=== PATIENT | female | born 1975 | race Caucasian/White ===

== ENCOUNTER 2021-03-16 11:15 | Inpatient (IN) | payer BC, SELFPAY ==
[~2021-03-16] VITALS: Ht 157.5 cm; Wt 58.1 kg
[2021-03-16 11:15] VITALS: BP_SYST 136
--- NOTE | 2021-03-16 11:49 | NUR ---
Pt coming from c/o excessive vaginal bleeding since Saturday. Pt states she saturated 20 pads yesterday. [facility] [place] where she was given a blood transfusion. Pt states she started her menstraul period on march 07 and it never stopped. Allergic to sulfa medications. Hx of breast cancer. Ambulatory with steady gait. Skin intact. Bed in lowest position and call light within reach. Placed on wire mesh knitter.
--- NOTE | 2021-03-16 12:05 | NUR ---
ER physician Dr. Marrero at bedside.
--- NOTE | 2021-03-16 12:17 | NUR ---
22g IV placed on right AC. Blood drawn and sent to lab. Aseptic technique used. No infiltration noted. Pt has no c/o. VSS.
[2021-03-16 12:55] LABS: CALCIUM 9.1 mg/dL (8.4-11.0); CREATININE 0.91 mg/dL (0.55-1.30); POTASSIUM 3.8 mmol/L (3.5-5.1)
[2021-03-16 13:01] LABS: ALBUMIN 3.1 g/dL (3.4-4.8); TOTAL BILIRUBIN 2.3 mg/dL (0.0-1.0)
[2021-03-16 13:04] LABS: HEMATOCRIT 31.7 % (36-48); HEMOGLOBIN 10.6 g/dL (12.0-16.0); MEAN CORPUSCULAR HEMOGLOBIN 30 pg (27-31); MEAN CORPUSCULAR HGB CONC 33 % (32-36); MEAN CORPUSCULAR VOLUME 90 fL (79.0-98.0); RED BLOOD CELL COUNT(AUTO) 3.54 MIL/uL (4.2-6.2); RED CELL DISTRIBUTION WIDTH 18.3 % (9.0-15.0)
--- NOTE | 2021-03-16 13:36 | NUR ---
Pelvic exam set up at bedside.
--- NOTE | 2021-03-16 13:52 | NUR ---
Pelvix exam completed by Dr. Corley. Covid swab done and sent to lab
[2021-03-16 14:41] LABS: PROTHROMBIN TIME 10.4 SECS (9.5-12.5)
[2021-03-16] MEDS ORDERED: ONDANSETRON HCL 4 MG/2 ML VIAL IVP PRN (15:15)
--- NOTE | 2021-03-16 15:27 | NUR ---
Admit orders have been placed by Dr. Fernandez via telephone. Orders were (Pelvic ultrasound, consult with Dr. Park Hematology, consult with Dr. Ruiz OBASHLY, check H&H every hour, and to be placed in MedSurg due to Thrombocytopenia and Vaginal Bleed).
--- NOTE | 2021-03-16 15:48 | NUR ---
Belonging List done.
[2021-03-16] MEDS ORDERED: DEXAMETHASONE SOD PHOSPHATE 10 MG/ML VIAL IVP SCH (16:00)
[2021-03-16] MEDS ORDERED: FOLIC ACID 1 MG TABLET PO ONE (16:15)
[2021-03-16] MEDS ORDERED: METHYLPREDNISOLONE SOD SUCC 40 MG/ML VIAL IVP ONE (16:15)
[2021-03-16] MEDS ORDERED: TRANEXAMIC ACID 650 MG TABLET PO ONE (16:30)
--- NOTE | 2021-03-16 16:43 | NUR ---
Dr. Park at bedside examining patient
[2021-03-16 17:16] LABS: HEMATOCRIT 31.1 % (36-48); HEMOGLOBIN 10.5 g/dL (12.0-16.0)
[2021-03-16 18:29] LABS: PLATELET COUNT (AUTO) 27 K/uL (130-430)
--- NOTE | 2021-03-16 18:31 | NUR ---
Pt currently eating dinner. Fresh water given. Pt has no c/o. VSS.
[2021-03-16 18:33] LABS: ATYPICAL LYMPHOCYTES % 5 % (0-0); BAND % (MANUAL) 8 % (0-6); BASOPHILS % (MANUAL) 0 % (0-2); EOSINOPHILS % (MANUAL) 2 % (0-7); LYMPHOCYTES % (MANUAL) 30 % (20-46); MONOCYTES % (MANUAL) 11 % (0-11)
[2021-03-16 18:34] LABS: CORRECTED WHITE BLOOD COUNT 9.3 K/uL (4.5-11.0)
--- NOTE | 2021-03-16 19:34 | NUR ---
Accepted care of the patient. Introduced myself and discussed the plan of care. Pt. verbalizes understanding. Vss, no apparent pain or discomfort.
--- NOTE | 2021-03-16 20:11 | NUR ---
Report given for 105 B to ELVIRA Lu.
[2021-03-16 20:28] VITALS: BP_SYST 147
--- NOTE | 2021-03-16 20:48 | NUR ---
CONSULTATION PAGED/CALLED Reason for Consultation: VAGINAL BLEED Person Who was Notified: NOTES IN ER SUMMARY WAS CALLED Consulting Physician: PETRA Water/Wastewater Project Engineer Specialty: Ordering Physician: JOHN
--- NOTE | 2021-03-16 20:50 | NUR ---
CONSULTATION PAGED/CALLED Reason for Consultation: VAGINAL BLEED Person Who was Notified: NOTES IN ER SUMMARY WAS CALLED Consulting Physician: Consultant EVARISTO Specialty: Ordering Physician: JOHN
[2021-03-16] MEDS: TRANEXAMIC ACID 650 MG TABLET PO SCH (21:00)
[2021-03-16] MEDS: METHYLPREDNISOLONE SOD SUCC 40 MG/ML VIAL IVP SCH (22:51)
[2021-03-17] VITALS (7 sets, daily range): BP systolic 130–147
--- NOTE | 2021-03-17 05:15 | NUR ---
CONSULTATION PAGED/CALLED Reason for Consultation: PLASMAPHERESIS Person Who was Notified: ORDER SAYS CONSULT WAS CALLED, DR. MADISON AT BEDSIDE Consulting Physician: GRICELDA Floorwalker Specialty: NEPHRO Ordering Physician: JOHN
[2021-03-17 08:52] LABS: ALBUMIN 2.6 g/dL (3.4-4.8); CALCIUM 8.7 mg/dL (8.4-11.0); CREATININE 0.77 mg/dL (0.55-1.30); POTASSIUM 4.5 mmol/L (3.5-5.1); TOTAL BILIRUBIN 1.7 mg/dL (0.0-1.0)
[2021-03-17 09:15] LABS: HEMATOCRIT 26.1 % (36-48); HEMOGLOBIN 8.6 g/dL (12.0-16.0); MEAN CORPUSCULAR HEMOGLOBIN 30 pg (27-31); MEAN CORPUSCULAR HGB CONC 33 % (32-36); MEAN CORPUSCULAR VOLUME 90 fL (79.0-98.0); RED CELL DISTRIBUTION WIDTH 19.4 % (9.0-15.0); WHITE BLOOD COUNT (AUTO) 18.4 K/uL (4.8-10.8)
[2021-03-17] MEDS: FOLIC ACID 1 MG TABLET PO SCH (09:59)
[2021-03-17] MEDS: METHYLPREDNISOLONE SOD SUCC 40 MG/ML VIAL IVP SCH ×2 (09:59→21:56)
[2021-03-17] MEDS: TRANEXAMIC ACID 650 MG TABLET PO SCH ×3 (09:59→21:56)
[2021-03-17 10:56] LABS: PLATELET COUNT (AUTO) 30 K/uL (130-430)
[2021-03-17 11:22] LABS: RETICULOCYTE COUNT 3.7 % (0.5-1.5)
--- NOTE | 2021-03-17 11:41 | NUR ---
[facility]/HCP CM MS EMRE SOTO WAS CALLED RE: TO ARRANGE TRANSFER TO ANOTHER HOSP FOR EMERGENCY PLASMA PHERESIS. LEFT CM VOICE MESSAGE.
[2021-03-17] MEDS ORDERED: HEPARIN SODIUM,PORCINE 5,000 UNITS/ML VIAL ONE (14:00)
[2021-03-17] MEDS ORDERED: DIPHENHYDRAMINE INJ 50 MG/ML VIAL IVP PRN (14:15)
[2021-03-17] MEDS ORDERED: CALCIUM GLUCONATE 3 GM in NS 100 ML IV PRN (14:15)
[2021-03-17] MEDS ORDERED: METHYLPREDNISOLONE SOD SUCC 40 MG/ML VIAL IVP PRN (14:15)
[2021-03-17] MEDS ORDERED: ALBUMIN HUMAN 5% 500 ML IV ONE ×2 (14:30→19:45)
[2021-03-17 14:58] LABS: BAND % (MANUAL) 8 % (0-6); CORRECTED WHITE BLOOD COUNT 10.8 K/uL (4.5-11.0)
[2021-03-17 14:59] LABS: BASOPHILS % (MANUAL) 0 % (0-2); EOSINOPHILS % (MANUAL) 4 % (0-7); LYMPHOCYTES % (MANUAL) 33 % (20-46); METAMYELOCYTES % 1 % (0-0); MONOCYTES % (MANUAL) 12 % (0-11)
[2021-03-17 16:13] LABS: HEMATOCRIT 25.7 % (36-48); HEMOGLOBIN 8.5 g/dL (12.0-16.0)
[2021-03-17] MEDS ORDERED: ALBUMIN HUMAN 25% 0 ML IV ONE (19:52)
[2021-03-17] MEDS ORDERED: CALCIUM GLUCONATE 1 GM/10 ML VIAL ONE (20:24)
--- NOTE | 2021-03-17 20:25 | NUR ---
CALLED PHARMACY REGARDING CALCIUM GLUCONATE ORDER - HELLEN RESPONDS CONFIRMS ORDER IS RIGHT DOSAGE AND THE MEDS WE HAVE ON HAND ARE 1gm - SAYS USE 3 BOTTLES. CHECKED FLOORS FOR ALBUMIN: CHECKED ER, OB, MEDSURG FLOOR PYXIS, ICU. ONLY OB HAD CALCIUM GLUCONATE BOTTLES. ONLY 2 BOTTLES 1gm EACH FOR A TOTAL OF 2gm. THAT IS ALL WE HAVE IN THE HOSPITAL PER THE [facility] BOOK IN REGARDS TO LOCATIONS.
--- NOTE | 2021-03-17 20:30 | NUR ---
LAB CALLS ABOUT FFP AND TALKED WITH PLASMAPHORESIS NURSE SAYS 7UNITS ADDITIONAL FFP CAME IN. 3UNITS ALREADY READY. PLASMAPHORESIS NURSE SAYS TO THAW THE OTHER 7UNITS OUT, CHANGE ALBUMIN ORDER TO 1L.
--- NOTE | 2021-03-17 20:33 | NUR ---
DR. MORA CALLS ORDERS 1.5L ALBUMIN, 1.5LFFP AND TO ORDER 1.5L FFP FOR TOMORROW. DUE TO AVAILABILITY OF ONLY 2GM CALCIUM GLUCONATE, PLASMAPHORESIS NURSE CAPRICE NOTIFIED DR. MORA. SAYS ITS OK TO GIVE 2GM.
--- NOTE | 2021-03-17 23:35 | NUR ---
PLASMAPHERESIS STARTED BY CAPRICE FELIX. PATIENT STABLE.
[2021-03-18] VITALS: BP_SYST 140
--- NOTE | 2021-03-18 00:53 | NUR ---
PLASMAPHERESIS TREATMENT ENDS PATIENT STABLE, VITALS STABLE.
--- NOTE | 2021-03-18 02:00 | NUR ---
ROUNDING NOTES Patient resting in bed - no s/s pain or distress noted. Respirations even and unlabored - head of bed elevated. IV site patent - no s/s redness, infection, or infiltration. Bed locked and in lowest position. Call light within reach - bed alarm on.
--- NOTE | 2021-03-18 07:30 | NUR ---
Initial Note Patient awake, alert, and oriented x 4. No pain or distress. Generalized weakness noted with exertion. Patient reports less vaginal bleeding. Call light and bedside table within reach, encouraged to call.
[2021-03-18 08:00] VITALS: BP_SYST 129
--- NOTE | 2021-03-18 08:30 | NUR ---
MD Rounds Dr. Vargas at bedside.
[2021-03-18 09:17] LABS: HEMOGLOBIN 8.5 g/dL (12.0-16.0); MEAN CORPUSCULAR HEMOGLOBIN 30 pg (27-31); MEAN CORPUSCULAR HGB CONC 33 % (32-36); MEAN CORPUSCULAR VOLUME 91 fL (79.0-98.0); RED BLOOD CELL COUNT(AUTO) 2.87 MIL/uL (4.2-6.2); RED CELL DISTRIBUTION WIDTH 19.4 % (9.0-15.0); WHITE BLOOD COUNT (AUTO) 21.3 K/uL (4.8-10.8)
[2021-03-18 09:44] LABS: ALBUMIN 3.3 g/dL (3.4-4.8); CALCIUM 8.4 mg/dL (8.4-11.0); CREATININE 0.96 mg/dL (0.55-1.30); POTASSIUM 3.8 mmol/L (3.5-5.1); TOTAL BILIRUBIN 1.5 mg/dL (0.0-1.0)
[2021-03-18] MEDS: METHYLPREDNISOLONE SOD SUCC 40 MG/ML VIAL IVP SCH ×3 (10:09→20:39)
[2021-03-18] MEDS: TRANEXAMIC ACID 650 MG TABLET PO SCH ×3 (10:09→20:39)
[2021-03-18] MEDS: FOLIC ACID 1 MG TABLET PO SCH (10:09)
[2021-03-18 11:28] LABS: PLATELET COUNT (AUTO) 30 K/uL (130-430)
[2021-03-18 12:00] VITALS: BP_SYST 148
[2021-03-18] MEDS: DIPHENHYDRAMINE INJ 50 MG/ML VIAL IV SCH (12:00)
--- NOTE | 2021-03-18 12:00 | NUR ---
Notes Patient resting in bed with family at bedside. No pain or distress. Call light in reach and bed locked in lowest position. Encouraged to call.
--- NOTE | 2021-03-18 15:40 | NUR ---
Plasmapheresis ELVIRA Hill at bedside to provide procedure.
[2021-03-18] MEDS: CALCIUM CHLORIDE 1 GM in NS 100 ML IV SCH (15:55)
[2021-03-18] MEDS: ALBUMIN HUMAN 5% 1,500 ML IV SCH (15:55)
[2021-03-18 16:23] VITALS: BP_SYST 146
[2021-03-18 16:58] LABS: HEMATOCRIT 24.6 % (36-48); HEMOGLOBIN 8.1 g/dL (12.0-16.0)
--- NOTE | 2021-03-18 18:45 | NUR ---
Closing Note Patient receiving plasma as ordered. Family at bedside. No pain or distress. Reports less bleeding. Safety precautions throughout shift. Will monitor and endorse to night nurse.
[2021-03-18 21:00] VITALS: BP_SYST 143
--- NOTE | 2021-03-18 21:15 | NUR ---
Patient awake alert no Reports of bleeding skin dry warm AMBULATES TO Rest Room as needed no SOB noted / .
--- NOTE | 2021-03-18 23:46 | NUR ---
Hourly Rounding patient watching TV in bed no complaints noted call estrella given to patient .
[2021-03-19 00:15] VITALS: BP_SYST 128
--- NOTE | 2021-03-19 03:03 | NUR ---
Patient Resting call estrella with patient chest movement symmetrical verbally Responsive no acute distress .
[2021-03-19 07:30] LABS: BAND % (MANUAL) 4 % (0-6); LYMPHOCYTES % (MANUAL) 42 % (20-46)
[2021-03-19 07:31] LABS: BASOPHILS % (MANUAL) 0 % (0-2); EOSINOPHILS % (MANUAL) 1 % (0-7); MONOCYTES % (MANUAL) 17 % (0-11)
[2021-03-19 08:15] VITALS: BP_SYST 138
--- NOTE | 2021-03-19 08:15 | NUR ---
OPENING NOTES: PATIENT EATING BREAKFAST. NO S/S OF ACUTE DISTRESS NOTED. HOB ELEVATED. BREATHING EVEN AND NON LABORED TO RA. DENIES ANY DISCOMFORT AT THIS TIME. FALL, SAFETY AND ASPIRATION MEASURES REINFORCED. CALL LIGHT WITHIN REACH.
[2021-03-19] MEDS: FOLIC ACID 1 MG TABLET PO SCH (09:26)
[2021-03-19] MEDS: TRANEXAMIC ACID 650 MG TABLET PO SCH ×3 (09:27→21:33)
[2021-03-19] MEDS: METHYLPREDNISOLONE SOD SUCC 40 MG/ML VIAL IVP SCH ×3 (09:27→20:24)
[2021-03-19] MEDS ORDERED: PANTOPRAZOLE SODIUM 40 MG TAB PO ONE (10:00)
[2021-03-19 10:18] LABS: HEMATOCRIT 24.3 % (36-48); HEMOGLOBIN 7.9 g/dL (12.0-16.0); MEAN CORPUSCULAR HEMOGLOBIN 29 pg (27-31); MEAN CORPUSCULAR HGB CONC 32 % (32-36); MEAN CORPUSCULAR VOLUME 91 fL (79.0-98.0); RED BLOOD CELL COUNT(AUTO) 2.68 MIL/uL (4.2-6.2); RED CELL DISTRIBUTION WIDTH 19.6 % (9.0-15.0); WHITE BLOOD COUNT (AUTO) 20.3 K/uL (4.8-10.8)
[2021-03-19 10:59] LABS: ALBUMIN 3.2 g/dL (3.4-4.8); BILIRUBIN,DIRECT 0.4 mg/dL (0.0-0.3); CALCIUM 7.8 mg/dL (8.4-11.0); CREATININE 0.89 mg/dL (0.55-1.30); POTASSIUM 3.9 mmol/L (3.5-5.1); TOTAL BILIRUBIN 1.3 mg/dL (0.0-1.0)
[2021-03-19 11:04] LABS: PLATELET COUNT (AUTO) 32 K/uL (130-430)
--- NOTE | 2021-03-19 11:28 | NUR ---
Plasmapheresis: Sergio RN at bedside to do the procedure.
--- NOTE | 2021-03-19 11:30 | NUR ---
SPOKE TO DR. DIAZ: SPOKE TO DR. DIAZ AND REPORTED PLATELET RESULT. NO NEW ORDER.
[2021-03-19] MEDS: CALCIUM CHLORIDE 1 GM in NS 100 ML IV SCH (11:35)
[2021-03-19] MEDS: ALBUMIN HUMAN 5% 1,500 ML IV SCH (11:37)
[2021-03-19] MEDS: DIPHENHYDRAMINE INJ 50 MG/ML VIAL IV SCH (12:00)
[2021-03-19 12:05] VITALS: BP_SYST 141
[2021-03-19 14:58] LABS: CORRECTED WHITE BLOOD COUNT 12.1 K/uL (4.5-11.0)
[2021-03-19 14:59] LABS: BAND % (MANUAL) 2 % (0-6); BASOPHILS % (MANUAL) 0 % (0-2); EOSINOPHILS % (MANUAL) 4 % (0-7); LYMPHOCYTES % (MANUAL) 33 % (20-46); MONOCYTES % (MANUAL) 12 % (0-11)
[2021-03-19 16:05] VITALS: BP_SYST 135
--- NOTE | 2021-03-19 19:30 | NUR ---
CLOSING NOTES: PATIENT RESTING IN BED. NO S/S OF ACUTE DISTRESS NOTED. FALL AND SAFETY MEASURES PROVIDED. CALL LIGHT WITHIN REACH. ENDORSED TO PORTAL ADMINISTRATOR RN.
[2021-03-19 20:00] VITALS: BP_SYST 157
[2021-03-19] MEDS: PANTOPRAZOLE SODIUM 40 MG TAB PO SCH (21:33)
[2021-03-19 22:00] VITALS: BP_SYST 157
[2021-03-20] VITALS: BP_SYST 147
[2021-03-20] MEDS: METOCLOPRAMIDE HCL 10 MG/2 ML VIAL IVP PRN (00:48)
--- NOTE | 2021-03-20 05:07 | NUR ---
Nutrition Update Johnnie Scale 18 noted. Pt admitted for Thrombocytopenia/Vaginal bleeding Diet: Regular BMI: 23.5 kg/m2 RD to follow per nutrition care standards.
[2021-03-20 08:00] VITALS: BP_SYST 139
--- NOTE | 2021-03-20 08:00 | NUR ---
Morning rounds: Pt A/Ox4 resting in bed. No s/s of respiratory or cardiac distress. LAC site is clean, dry and intact. Right IJ is clean, dry and intact, with lumens covered. Fall and safety precautions in place, call light with in reach, will continue to monitor.
[2021-03-20 08:06] LABS: BASOPHILS # (AUTO) 0.1 K/uL (0.0-0.2); BASOPHILS % (AUTO) 0.5 % (0.0-2.0); EOSINOPHILS # (AUTO) 0.2 K/uL (0.0-0.4); EOSINOPHILS % (AUTO) 1.3 % (0.0-4.0); LYMPHOCYTES # (AUTO) 7.1 K/uL (1.0-5.5); LYMPHOCYTES % (AUTO) 44.7 % (20.5-51.5); MEAN CORPUSCULAR HEMOGLOBIN 30 pg (27-31); MEAN CORPUSCULAR HGB CONC 33 % (32-36); MEAN CORPUSCULAR VOLUME 91 fL (79.0-98.0); MONOCYTES # (AUTO) 1.8 K/uL (0.0-1.0); MONOCYTES % (AUTO) 11.4 % (1.7-9.3); NEUTROPHILS # (AUTO) 6.6 K/uL (1.8-7.7); NEUTROPHILS % (AUTO) 42.1 % (40.0-70.0); RED BLOOD CELL COUNT(AUTO) 2.23 MIL/uL (4.2-6.2); RED CELL DISTRIBUTION WIDTH 19.6 % (9.0-15.0); WHITE BLOOD COUNT (AUTO) 15.8 K/uL (4.8-10.8)
[2021-03-20 08:16] LABS: HEMATOCRIT 20.4 % (36-48); HEMOGLOBIN 6.7 g/dL (12.0-16.0)
[2021-03-20 08:17] LABS: PLATELET COUNT (AUTO) 28 K/uL (130-430)
--- NOTE | 2021-03-20 08:17 | NUR ---
CRITICAL INFORMED RN OF CRITICAL LAB H6.7 HEM20.4 AND PLATELET 28
--- NOTE | 2021-03-20 08:25 | NUR ---
CRITICAL LAB PAGED DR LAMBERT REGARDING CRITICAL LAB SPOKE WITH YON
[2021-03-20] MEDS: TRANEXAMIC ACID 650 MG TABLET PO SCH ×3 (09:00→21:00)
[2021-03-20 09:10] LABS: CALCIUM 7.9 mg/dL (8.4-11.0); CREATININE 0.86 mg/dL (0.55-1.30); POTASSIUM 4.6 mmol/L (3.5-5.1); TOTAL BILIRUBIN 0.9 mg/dL (0.0-1.0)
[2021-03-20] MEDS: METHYLPREDNISOLONE SOD SUCC 40 MG/ML VIAL IVP SCH (09:51)
[2021-03-20] MEDS: PANTOPRAZOLE SODIUM 40 MG TAB PO SCH ×2 (09:51→22:06)
[2021-03-20] MEDS: FOLIC ACID 1 MG TABLET PO SCH (09:51)
[2021-03-20 11:29] VITALS: BP_SYST 137
[2021-03-20] MEDS: DIPHENHYDRAMINE INJ 50 MG/ML VIAL IV SCH (12:00)
[2021-03-20] MEDS: DEXAMETHASONE SOD PHOSPHATE 10 MG/ML VIAL IVP SCH ×2 (12:00→16:19)
--- NOTE | 2021-03-20 12:20 | NUR ---
BT INITIATION: Consent signed per patient agreeing to administration of blood. Blood has been type and crossmatched. Blood sent from blood bank. Information on unit of blood checked against patient wristband at bedside by two nurses. All information matches. Patient or responsible republican informed of potential complications associated with blood transfusion. Informed of possible transfusion reaction symptoms. Aware of need to notify nurse at once of itching, shortness of breath, flushing, feeling of impending doom, or other symptoms not previously present. Vital signs taken within 5 minutes prior to initiation of transfusion. RN will remain with patient for first 15 minutes of transfusion at which time vital signs will be re-assessed.
[2021-03-20 15:24] VITALS: BP_SYST 139
[2021-03-20] MEDS: CALCIUM CHLORIDE 1 GM in NS 100 ML IV SCH (15:56)
[2021-03-20] MEDS: ALBUMIN HUMAN 5% 1,500 ML IV SCH (15:57)
--- NOTE | 2021-03-20 16:00 | NUR ---
RN notes: 1 unit packed cells finished, no s/s of adverse reactions, VVS. Beginning plasmapheresis, collected plasma from blood bank. Collected Albumin 5% and Calcium Gluconate from pharmacy, and manually scanned into MAR per pharmacy. Naseem FELIX will administer Plasma, Albumin, and Calcium gluconate to pt. Pt also refuse Tranexamic Acid, due to GI discomfort, and wants to talk to OB about switching.
--- NOTE | 2021-03-20 19:00 | NUR ---
Closing notes: Pt A/Ox4 resting in bed. No s/s of respiratory or cardiac distress. LAC site is clean, dry and intact. Right IJ is clean, dry and intact, with lumens covered. Fall and safety precautions in place, call light with in reach, will endorse to shift nurse manager.
[2021-03-20 20:00] VITALS: BP_SYST 143
--- NOTE | 2021-03-20 20:00 | NUR ---
opening note Patient sitting in bed talking to family. patient just finished plasmapheresis treatment. patient does not report any discomfort and vitals are within her baseline.
--- NOTE | 2021-03-20 22:00 | NUR ---
refused medication patient refused medication Tranexamic acid at 2100 she stated that the "medication hurts my stomach". Prescribing doctor was paged and awaiting a call back.
[2021-03-21] MEDS: DEXAMETHASONE SOD PHOSPHATE 10 MG/ML VIAL IVP SCH ×5 (00:15→21:11)
[2021-03-21 00:49] VITALS: BP_SYST 143
[2021-03-21 07:12] LABS: BASOPHILS % (AUTO) 0.5 % (0.0-2.0); EOSINOPHILS # (AUTO) 0.2 K/uL (0.0-0.4); HEMATOCRIT 25.3 % (36-48); HEMOGLOBIN 8.3 g/dL (12.0-16.0); LYMPHOCYTES # (AUTO) 4.2 K/uL (1.0-5.5); LYMPHOCYTES % (AUTO) 43.1 % (20.5-51.5); MEAN CORPUSCULAR HEMOGLOBIN 29 pg (27-31); MEAN CORPUSCULAR HGB CONC 33 % (32-36); MEAN CORPUSCULAR VOLUME 87 fL (79.0-98.0); MONOCYTES # (AUTO) 0.9 K/uL (0.0-1.0); MONOCYTES % (AUTO) 9.2 % (1.7-9.3); NEUTROPHILS # (AUTO) 4.4 K/uL (1.8-7.7); NEUTROPHILS % (AUTO) 45.2 % (40.0-70.0); RED CELL DISTRIBUTION WIDTH 19.9 % (9.0-15.0); WHITE BLOOD COUNT (AUTO) 9.8 K/uL (4.8-10.8)
[2021-03-21 08:00] VITALS: BP_SYST 145
[2021-03-21 08:03] LABS: ALBUMIN 3.2 g/dL (3.4-4.8); CALCIUM 7.8 mg/dL (8.4-11.0); CREATININE 0.8 mg/dL (0.55-1.30); POTASSIUM 4.4 mmol/L (3.5-5.1)
[2021-03-21] MEDS: TRANEXAMIC ACID 650 MG TABLET PO SCH (09:00)
[2021-03-21] MEDS: FOLIC ACID 1 MG TABLET PO SCH (09:19)
[2021-03-21] MEDS: PANTOPRAZOLE SODIUM 40 MG TAB PO SCH ×2 (09:19→21:39)
[2021-03-21 11:25] VITALS: BP_SYST 139
[2021-03-21 13:56] LABS: PLATELET COUNT (AUTO) 29 K/uL (130-430)
--- NOTE | 2021-03-21 15:10 | NUR ---
RN note: Sergio FELIX arrive for plasmapheresis treatment, will gather supplies and medications for him.
[2021-03-21 15:22] VITALS: BP_SYST 139
--- NOTE | 2021-03-21 16:00 | NUR ---
RN Note: Sergio FELIX does not have an essential supply from his company and will return later this afternoon to complete the plasmapheresis.
--- NOTE | 2021-03-21 17:45 | NUR ---
RN note: Sergio FELIX returned to complete plasmapheresis, he administered the Albumin and Calcium gluconate. I administered the Decadron.
[2021-03-21] MEDS: CALCIUM CHLORIDE 1 GM in NS 100 ML IV SCH (17:59)
[2021-03-21] MEDS: ALBUMIN HUMAN 5% 1,500 ML IV SCH (18:00)
[2021-03-21] MEDS: DIPHENHYDRAMINE INJ 50 MG/ML VIAL IV SCH (18:00)
--- NOTE | 2021-03-21 19:30 | NUR ---
OPENING NOTES ENDORSED CAR FROM DAY SHIFT. PT IS CURRENTLY RECEIVING PLASMA BEDSIDE, NO SIGNS OF DISTRESS.PT UIS SITTING UP IN BED TALKING WITH FRIENDS/FAMILY BEDSIDE. FALL AND SAFETY PRECAUTIONS IN PLACE WITH BED IN LOWEST POSITION AND CALL LIGHT WITHIN REACH.
--- NOTE | 2021-03-21 19:34 | NUR ---
Closing notes: Pt A/Ox4 resting in bed. No s/s of respiratory or cardiac distress. LAC site is clean, dry and intact. Right IJ is clean, dry and intact, with lumens being used for plasmapheresis administration. Fall and safety precautions in place, call light with in reach, will endorse to retail shift supervisor.
[2021-03-21 20:00] VITALS: BP_SYST 128
[2021-03-22] VITALS (7 sets, daily range): BP systolic 126–147
[2021-03-22] MEDS: DEXAMETHASONE SOD PHOSPHATE 10 MG/ML VIAL IVP SCH ×5 (00:41→23:04)
--- NOTE | 2021-03-22 06:07 | NUR ---
FFP READY AT THIS TIME Per Marin from lab, 6 units of FFP which equal to approximately over 1500cc is ready for pickup whenever. Will endorse to dayshift for upcoming plasmapheresis.
--- NOTE | 2021-03-22 07:11 | NUR ---
CLOSING NOTES ENDORSED CAR TO DAY SHIFT. PT IS CURRENTLY SLEEPING, NO SIGNS OF DISTRESS. FALL AND SAFETY PRECAUTIONS IN PLACE WITH BED IN LOWEST POSITION AND CALL LIGHT WITHIN REACH.
[2021-03-22 07:21] LABS: BASOPHILS % (AUTO) 0.3 % (0.0-2.0); EOSINOPHILS # (AUTO) 0.2 K/uL (0.0-0.4); EOSINOPHILS % (AUTO) 1.6 % (0.0-4.0); HEMATOCRIT 23.1 % (36-48); HEMOGLOBIN 7.7 g/dL (12.0-16.0); LYMPHOCYTES # (AUTO) 6.6 K/uL (1.0-5.5); LYMPHOCYTES % (AUTO) 45.8 % (20.5-51.5); MEAN CORPUSCULAR HEMOGLOBIN 29 pg (27-31); MEAN CORPUSCULAR HGB CONC 33 % (32-36); MEAN CORPUSCULAR VOLUME 88 fL (79.0-98.0); MONOCYTES # (AUTO) 1.2 K/uL (0.0-1.0); MONOCYTES % (AUTO) 8.7 % (1.7-9.3); NEUTROPHILS # (AUTO) 6.2 K/uL (1.8-7.7); NEUTROPHILS % (AUTO) 43.6 % (40.0-70.0); RED BLOOD CELL COUNT(AUTO) 2.64 MIL/uL (4.2-6.2); RED CELL DISTRIBUTION WIDTH 19.8 % (9.0-15.0); WHITE BLOOD COUNT (AUTO) 14.3 K/uL (4.8-10.8)
--- NOTE | 2021-03-22 08:42 | NUR ---
Received critical lab result of plt = 31 from Kaitlin Vick. made aware; Patient is on plasmophresis; today's result is trending up from yesterday's result of 29
[2021-03-22 08:43] LABS: PLATELET COUNT (AUTO) 31 K/uL (130-430)
[2021-03-22 08:45] LABS: ALBUMIN 3.1 g/dL (3.4-4.8); CALCIUM 7.9 mg/dL (8.4-11.0); CREATININE 0.75 mg/dL (0.55-1.30); POTASSIUM 4.1 mmol/L (3.5-5.1)
[2021-03-22] MEDS: PANTOPRAZOLE SODIUM 40 MG TAB PO SCH ×2 (09:06→20:52)
[2021-03-22] MEDS: FOLIC ACID 1 MG TABLET PO SCH (09:06)
--- NOTE | 2021-03-22 09:09 | NUR ---
Dr Workman here to talk to patient; he also talked to blood bank
[2021-03-22] MEDS ORDERED: ALBUMIN HUMAN 5% 3,000 ML IV SCH (09:12)
--- NOTE | 2021-03-22 09:21 | NUR ---
Dr Johns talke to blood bank and told them not to thaw any more bags of Razvani because patient is not going to get any more bags. But Blood bank called back Dr Johns. The blood bank said that there are already 6 bags of plasmophress thawed. Dr Johns would like patient to get 6 bags of plasmophresis with 3 bags of albumin during today's plasmophresis but he wants us to call him when the plasmophresis nurse comes here.
--- NOTE | 2021-03-22 10:30 | NUR ---
Received a call from ELVIRA Gusman for plasmapheresis. I told him that Dr Johns wants us to call him before he gives the plasmapheresis. Naseem says he will call Dr Johns himself and get back to me with what the says
[2021-03-22] MEDS: DIPHENHYDRAMINE INJ 50 MG/ML VIAL IV SCH (11:39)
--- NOTE | 2021-03-22 12:46 | NUR ---
Naseem FELIX from [facility] here to perform the plasma pherosis procedure.
[2021-03-22] MEDS: CALCIUM CHLORIDE 1 GM in NS 100 ML IV SCH (12:53)
--- NOTE | 2021-03-22 19:25 | NUR ---
OPENING NOTES ENDORSED CAR FROM DAY SHIFT.PT UIS SITTING UP IN CHAIR EATING WITH FRIENDS/FAMILY BEDSIDE. NO APPARENT DISTRESS NOTED AT THIS TIME. SAFETY PRECAUTIONS IN PLACE, CALL LIGHT WITHIN REACH.
[2021-03-23 01:37] VITALS: BP_SYST 131
[2021-03-23] MEDS: DEXAMETHASONE SOD PHOSPHATE 10 MG/ML VIAL IVP SCH (05:26)
--- NOTE | 2021-03-23 07:25 | NUR ---
CLOSING NOTES ENDORSED CAR TO DAY SHIFT. PT IS CURRENTLY SLEEPING, NO SIGNS OF DISTRESS. FALL AND SAFETY PRECAUTIONS IN PLACE WITH BED IN LOWEST POSITION AND CALL LIGHT WITHIN REACH. PT IS NPO FOR ABDOMINAL AND PELVIC CT W/ CONTRAST.
[2021-03-23] MEDS ORDERED: DIATR MEGLU/DIATRIZ SOD 30 ML SOLUTION PO ONE ×2 (08:06→08:22)
[2021-03-23 08:29] LABS: HEMATOCRIT 23.4 % (36-48); HEMOGLOBIN 7.7 g/dL (12.0-16.0); MEAN CORPUSCULAR HEMOGLOBIN 29 pg (27-31); MEAN CORPUSCULAR HGB CONC 33 % (32-36); MEAN CORPUSCULAR VOLUME 89 fL (79.0-98.0); RED BLOOD CELL COUNT(AUTO) 2.64 MIL/uL (4.2-6.2); RED CELL DISTRIBUTION WIDTH 20.6 % (9.0-15.0); WHITE BLOOD COUNT (AUTO) 14.6 K/uL (4.8-10.8)
[2021-03-23] MEDS: METOCLOPRAMIDE HCL 10 MG/2 ML VIAL IVP PRN (08:43)
[2021-03-23 08:50] LABS: ALBUMIN 3.3 g/dL (3.4-4.8); CALCIUM 7.5 mg/dL (8.4-11.0); CREATININE 0.68 mg/dL (0.55-1.30); POTASSIUM 3.9 mmol/L (3.5-5.1); TOTAL BILIRUBIN 0.7 mg/dL (0.0-1.0)
[2021-03-23 11:03] VITALS: BP_SYST 143
[2021-03-23 11:09] LABS: PLATELET COUNT (AUTO) 29 K/uL (130-430)
--- NOTE | 2021-03-23 11:25 | NUR ---
0800: AWAKE, ALERT, ORIENTED X 4 TO NAME, PERSON, PLACE, AND TIME. RESPIRATION EVEN AND UNLABORED NO S/S OF ANY ACUTE DISTRESS NOTED. ABLE TO VERBALIZE NEEDS NO C/O ANY PAIN OR DISCOMFORT @ THIS TIME. ABDOMEN SOFT AND NON-DISTENDED, POSITIVE BOWEL SOUND X 4 NO N/V OR DIARRHEA NOTED. SKIN WARM AND DRY, RIGHT BREAST WOUND WITH DRESSING INTACT W/O ANY DRAINAGE OR DISCHARGE NOTED. WILL CONTINUE TO REASSESS PATIENT PRN. NPO FOR CT SCAN TODAY. ALSO PLAN FOR BONE MARROW BIOPSY AND PLASMA PARESIS.
--- NOTE | 2021-03-23 12:46 | NUR ---
PAGED PAGED RAUL SIMMONS AT [phone] SPOKE WITH ANN.
--- NOTE | 2021-03-23 12:52 | NUR ---
called dr escalera to report ct abd /pelvis result
[2021-03-23] MEDS: FOLIC ACID 1 MG TABLET PO SCH (12:56)
[2021-03-23] MEDS: PANTOPRAZOLE SODIUM 40 MG TAB PO SCH ×2 (12:56→20:28)
--- NOTE | 2021-03-23 13:19 | NUR ---
ABNORMAL CT SCAN RESULT RELAYED TO DR. LAMBERT, NO NEW ORDER @ THIS TIME. MD ALREADY AWARE WITH RESULT CONFERED WITH RADIOLOGIST
[2021-03-23 15:28] LABS: BAND % (MANUAL) 6 % (0-6); BASOPHILS % (MANUAL) 0 % (0-2); CORRECTED WHITE BLOOD COUNT 12.2 K/uL (4.5-11.0); EOSINOPHILS % (MANUAL) 1 % (0-7); LYMPHOCYTES % (MANUAL) 41 % (20-46); MONOCYTES % (MANUAL) 13 % (0-11)
--- NOTE | 2021-03-23 19:00 | NUR ---
PATIENT REMAINED STABLE W/O ANY CHANGE IN LOC. PLASMAPARESIS COMPLETED W/O ANY ADVERSE REACTION NOTED. ENDORSED PATIENT TO PM SHIFT NURSE.
[2021-03-23 20:00] VITALS: BP_SYST 129
[2021-03-24 00:20] VITALS: BP_SYST 127
[2021-03-24 08:00] VITALS: BP_SYST 138
[2021-03-24] MEDS: FOLIC ACID 1 MG TABLET PO SCH (09:09)
[2021-03-24] MEDS: PANTOPRAZOLE SODIUM 40 MG TAB PO SCH ×2 (09:10→21:13)
--- NOTE | 2021-03-24 11:05 | NUR ---
CONSULTATION: REASON FOR CONSULT: FRACTURE CONSULTING PHYSICIAN: Alise ZUNIGA ORDERED BY: OJHN [phone] SPOKE WITH FRED
--- NOTE | 2021-03-24 11:06 | NUR ---
0800: AWAKE, ALERT, ORIENTED X 4 TO NAME, PERSON, PLACE, AND TIME. RESPIRATION EVEN AND UNLABORED NO S/S OF ANY ACUTE DISTRESS NOTED. ABLE TO VERBALIZE NEEDS NO C/O ANY PAIN OR DISCOMFORT NOTED. ABDOMEN SOFT AND NON-DISTENDED, POSITIVE BOWEL SOUND X 4 NO N/V OR DIARRHEA NOTED. SKIN WARM AND DRY INTACT, RIGHT BREAST WOUND WITH DRESSING INTACT W/O ANY DRAINAGE OR BLEEDING NOTED @ THIS TIME. 0930: DR. LAMBERT @ BEDSIDE, DISCUSS TREATMENT WITH PATIENT, JOHNNY CATH RIGHT NECK DC'D BY DR. MORA, APPLIED DRY DRESSING AND WILL CONTINUE TO MONITOR PATIENT,.
--- NOTE | 2021-03-24 11:38 | NUR ---
ORTHO CONSULT, DR Alise ZUNIGA WAS CALLED, RE: FRACTURE L HIP SOCKET. LEFT A VOICE MESSAGE.
[2021-03-24 12:24] LABS: ALBUMIN 3.5 g/dL (3.4-4.8); CALCIUM 7.4 mg/dL (8.4-11.0); CREATININE 0.72 mg/dL (0.55-1.30); POTASSIUM 3.5 mmol/L (3.5-5.1); TOTAL BILIRUBIN 0.9 mg/dL (0.0-1.0)
[2021-03-24 12:35] LABS: HEMATOCRIT 24.5 % (36-48); MEAN CORPUSCULAR HEMOGLOBIN 29 pg (27-31); MEAN CORPUSCULAR HGB CONC 33 % (32-36); MEAN CORPUSCULAR VOLUME 90 fL (79.0-98.0); RED BLOOD CELL COUNT(AUTO) 2.74 MIL/uL (4.2-6.2); RED CELL DISTRIBUTION WIDTH 20.8 % (9.0-15.0); WHITE BLOOD COUNT (AUTO) 15.1 K/uL (4.8-10.8)
[2021-03-24 12:39] LABS: PLATELET COUNT (AUTO) 32 K/uL (130-430)
--- NOTE | 2021-03-24 12:42 | NUR ---
CRITICAL INFORMED BUILDING SUPPLIES SALESPERSON RETAIL OF CRITICAL PLATELETS
--- NOTE | 2021-03-24 12:59 | NUR ---
ATTENDING MD DR LOPEZ WAS CALLED, RE: TO ASK WHETHER ORTHO CONSULT WITH DR Alise ZUNIGA CAN WAIT TILL SATURDAY. DR LOPEZ ASKED TO CALL DR Phyllis ALVAREZ TO CHECK IF CAN SEE THIS PT.
--- NOTE | 2021-03-24 13:06 | NUR ---
CONSULTATION PAGED/CALLED Reason for Consultation: [] FRACTURE L HIP SOCKET Person Who was Notified: [] DR ALVAREZ, W Consulting Physician: [] DR Phyllis ALVAREZ Felt Hat Mellowing Machine Operator Specialty: [] ORTHO Ordering Physician: [] DR LOPEZ
[2021-03-24 15:28] LABS: BAND % (MANUAL) 7 % (0-6); CORRECTED WHITE BLOOD COUNT 11.8 K/uL (4.5-11.0); LYMPHOCYTES % (MANUAL) 35 % (20-46)
[2021-03-24 15:29] LABS: BASOPHILS % (MANUAL) 0 % (0-2); EOSINOPHILS % (MANUAL) 2 % (0-7); METAMYELOCYTES % 1 % (0-0); MONOCYTES % (MANUAL) 14 % (0-11)
[2021-03-24] MEDS ORDERED: ZOLEDRONIC ACID 4 MG in NS 100 ML IV ONE (16:15)
--- NOTE | 2021-03-24 18:37 | NUR ---
PATIENT REMAINED STABLE, W/O ANY CHANGE IN LOC OR C/O ANY PAIN OR DISCOMFORT NOTED. CRITICAL PLATELETE BUT BETTER THAN YESTERDAY RESULT. BONE SCAN FOR TONIGHT, PATIENT IS CURRENTLY OFF THE UNIT FOR DIAGNOSTIC SCAN ORDERED. WILL ENDORSE PATIENT TO PM SHIFT NURSE.
[2021-03-24 20:00] VITALS: BP_SYST 144
[2021-03-24] MEDS: CALCIUM CARBONATE/VITAMIN D3 1 TAB TABLET PO SCH (21:14)
[2021-03-25 02:22] VITALS: BP_SYST 133
[2021-03-25 05:47] VITALS: BP_SYST 129
[2021-03-25 08:00] VITALS: BP_SYST 126
[2021-03-25] MEDS: FOLIC ACID 1 MG TABLET PO SCH (08:35)
[2021-03-25] MEDS: PANTOPRAZOLE SODIUM 40 MG TAB PO SCH ×2 (08:36→21:15)
[2021-03-25] MEDS: CALCIUM CARBONATE/VITAMIN D3 1 TAB TABLET PO SCH ×2 (08:36→21:15)
[2021-03-25] MEDS ORDERED: ZOLEDRONIC ACID 4 MG in NS 100 ML IV ONE (12:00)
[2021-03-25 12:12] LABS: ALBUMIN 3.3 g/dL (3.4-4.8); CALCIUM 8.2 mg/dL (8.4-11.0); CREATININE 0.65 mg/dL (0.55-1.30); POTASSIUM 3.3 mmol/L (3.5-5.1); TOTAL BILIRUBIN 1.3 mg/dL (0.0-1.0)
[2021-03-25 12:25] VITALS: BP_SYST 129
[2021-03-25 12:37] LABS: TOTAL IRON BIND. CAPACITY 210 ug/dL (250-450)
[2021-03-25 13:20] LABS: BASOPHILS # (AUTO) 0.1 K/uL (0.0-0.2); BASOPHILS % (AUTO) 0.6 % (0.0-2.0); EOSINOPHILS # (AUTO) 0.2 K/uL (0.0-0.4); EOSINOPHILS % (AUTO) 1.5 % (0.0-4.0); HEMATOCRIT 24.5 % (36-48); HEMOGLOBIN 8.1 g/dL (12.0-16.0); LYMPHOCYTES % (AUTO) 33.9 % (20.5-51.5); MEAN CORPUSCULAR HEMOGLOBIN 29 pg (27-31); MEAN CORPUSCULAR HGB CONC 33 % (32-36); MEAN CORPUSCULAR VOLUME 89 fL (79.0-98.0); MONOCYTES # (AUTO) 0.8 K/uL (0.0-1.0); MONOCYTES % (AUTO) 6.4 % (1.7-9.3); NEUTROPHILS # (AUTO) 6.7 K/uL (1.8-7.7); NEUTROPHILS % (AUTO) 57.6 % (40.0-70.0); RED BLOOD CELL COUNT(AUTO) 2.76 MIL/uL (4.2-6.2); RED CELL DISTRIBUTION WIDTH 21.1 % (9.0-15.0); WHITE BLOOD COUNT (AUTO) 11.7 K/uL (4.8-10.8)
--- NOTE | 2021-03-25 13:52 | NUR ---
CONSULTATION PAGED REASON FOR CONSULTATION:MEDPORT PLACEMENT WAS CONSULT CALED?Y PERSON WHO WAS NOTIFIED:KARINA PEDROZA CONSULTING PHYSICIAN:KARINA PEDROZA SHELLFISH FARMING SUPERVISOR SPECIALTY:SURGEON SHELLFISH FARMING SUPERVISOR PHONE NUMBER:[phone] REQUESTING PHYSICIAN:JF MUNGUIA
[2021-03-25 14:22] LABS: PLATELET COUNT (AUTO) 37 K/uL (130-430)
[2021-03-25 16:00] VITALS: BP_SYST 126
--- NOTE | 2021-03-25 19:15 | NUR ---
OPENING NOTES ENDORSED CAR FROM DAY SHIFT.PT UIS SITTING UP IN BED. NO APPARENT DISTRESS NOTED AT THIS TIME. SAFETY PRECAUTIONS IN PLACE, CALL LIGHT WITHIN REACH.
[2021-03-25 20:00] VITALS: BP_SYST 138
--- NOTE | 2021-03-25 21:15 | NUR ---
MED ADMINISTRATION GAVE ORDERED MEDS AT 2114. MEDICATION ADMINISTRATION DID NOT SAVE.
[2021-03-26 00:30] VITALS: BP_SYST 129
--- NOTE | 2021-03-26 06:56 | NUR ---
CLOSING NOTES ENDORSED CAR TO DAY SHIFT. PT IS CURRENTLY SLEEPING, NO SIGNS OF DISTRESS AT THIS TIME. SAFETY PRECAUTIONS IN PLACE WITH BED IN LOWEST POSITION AND CALL LIGHT WITHIN REACH.
[2021-03-26 08:00] VITALS: BP_SYST 136
--- NOTE | 2021-03-26 08:00 | NUR ---
AM ASSESSMENT PT ALERT, BLOOD PRESSURE IN NORMAL RANGE, DENIES BODY PAIN, EDEMA NOTED TO LEFT ARM AND LEGS, ENCOURAGED PT TO KEEP LOWER EXTREMITIES HIGHER THAN HEART LEVEL TO REDUCE SWELLING, WILL CONTINUE TO MONITOR.
[2021-03-26] MEDS: PANTOPRAZOLE SODIUM 40 MG TAB PO SCH ×2 (08:48→20:31)
[2021-03-26] MEDS: FOLIC ACID 1 MG TABLET PO SCH (08:48)
[2021-03-26] MEDS: CALCIUM CARBONATE/VITAMIN D3 1 TAB TABLET PO SCH ×2 (08:48→20:31)
[2021-03-26 09:06] LABS: FOLATE (FOLIC ACID) >20.0 ng/mL (>3.0)
[2021-03-26 12:00] VITALS: BP_SYST 135
[2021-03-26 13:00] LABS: RED BLOOD CELL COUNT(AUTO) 3.19 MIL/uL (4.2-6.2)
[2021-03-26 13:05] LABS: HEMATOCRIT 28.6 % (36-48); HEMOGLOBIN 9.4 g/dL (12.0-16.0); MEAN CORPUSCULAR HEMOGLOBIN 30 pg (27-31); MEAN CORPUSCULAR HGB CONC 33 % (32-36); MEAN CORPUSCULAR VOLUME 90 fL (79.0-98.0); RED CELL DISTRIBUTION WIDTH 22.1 % (9.0-15.0); WHITE BLOOD COUNT (AUTO) 6.5 K/uL (4.8-10.8)
[2021-03-26 13:11] LABS: ALBUMIN 3.3 g/dL (3.4-4.8); CALCIUM 8.2 mg/dL (8.4-11.0); CREATININE 0.82 mg/dL (0.55-1.30); POTASSIUM 3.4 mmol/L (3.5-5.1); TOTAL BILIRUBIN 1.8 mg/dL (0.0-1.0)
[2021-03-26 13:12] LABS: PLATELET COUNT (AUTO) 35 K/uL (130-430)
--- NOTE | 2021-03-26 13:32 | NUR ---
ABN PLATELET COUNT PAGED DR LAMBERT AND HE CALLED BACK. REPORTED PLATELET CT 35. NO NEW ORDERS. HE INQUIRED ABOUT THE MEDIPORT. WILL ATTEMPT TO GET THRU DR SANCHEZ.
--- NOTE | 2021-03-26 13:33 | NUR ---
CONSULT PAGED DR Jalyn SANCHEZ REGARDING MEDIPORT PLACEMENT. HE WILL COME TO SEE THE PATIENT TOMORROW.
[2021-03-26 14:35] LABS: BAND % (MANUAL) 21 % (0-6); BASOPHILS % (MANUAL) 0 % (0-2); CORRECTED WHITE BLOOD COUNT 6.1 K/uL (4.5-11.0); EOSINOPHILS % (MANUAL) 0 % (0-7); LYMPHOCYTES % (MANUAL) 4 % (20-46); METAMYELOCYTES % 3 % (0-0); MONOCYTES % (MANUAL) 4 % (0-11); MYELOCYTES % 2 % (0-0)
[2021-03-26] MEDS: ACETAMINOPHEN 325 MG TABLET PO PRN ×2 (14:39→23:07)
--- NOTE | 2021-03-26 14:39 | NUR ---
PAIN. PT VERBALIZED LEFT LOWER BACK PAIN, "LIKE PULLED MY MUSCLE, TYLENOL 650 MG TABLETS GIVEN.
[2021-03-26 16:00] VITALS: BP_SYST 116
--- NOTE | 2021-03-26 16:00 | NUR ---
ACTIVITY PT SEEN GETTING BACK TO HER BED FROM THE BATHROOM, NEEDS ASSESSED AND ATTENDED, CALL LIGHT IN REACH, CONTINUE TO MONITOR PT.
[2021-03-26 18:27] LABS: FERRITIN 509 ng/mL (15-150)
[2021-03-26 20:28] VITALS: BP_SYST 121
[2021-03-27 04:00] VITALS: BP_SYST 136
[2021-03-27 08:01] VITALS: BP_SYST 129
--- NOTE | 2021-03-27 09:13 | NUR ---
MD Rounds Dr. Park at bedside.
[2021-03-27] MEDS: PANTOPRAZOLE SODIUM 40 MG TAB PO SCH ×2 (09:21→20:28)
[2021-03-27] MEDS: CALCIUM CARBONATE/VITAMIN D3 1 TAB TABLET PO SCH ×2 (09:22→20:28)
[2021-03-27] MEDS: FOLIC ACID 1 MG TABLET PO SCH (09:22)
[2021-03-27] MEDS: ACETAMINOPHEN 325 MG TABLET PO PRN (09:30)
[2021-03-27 10:37] LABS: ALBUMIN 2.9 g/dL (3.4-4.8); CALCIUM 7.9 mg/dL (8.4-11.0); CREATININE 0.55 mg/dL (0.55-1.30); TOTAL BILIRUBIN 1.1 mg/dL (0.0-1.0)
[2021-03-27 12:00] VITALS: BP_SYST 118
[2021-03-27 12:13] LABS: BASOPHILS % (AUTO) 0.2 % (0.0-2.0); EOSINOPHILS # (AUTO) 0.1 K/uL (0.0-0.4); HEMATOCRIT 24.2 % (36-48); LYMPHOCYTES # (AUTO) 2.5 K/uL (1.0-5.5); LYMPHOCYTES % (AUTO) 34.5 % (20.5-51.5); MEAN CORPUSCULAR HEMOGLOBIN 30 pg (27-31); MEAN CORPUSCULAR HGB CONC 33 % (32-36); MEAN CORPUSCULAR VOLUME 90 fL (79.0-98.0); MONOCYTES # (AUTO) 0.7 K/uL (0.0-1.0); MONOCYTES % (AUTO) 9.1 % (1.7-9.3); NEUTROPHILS # (AUTO) 3.9 K/uL (1.8-7.7); NEUTROPHILS % (AUTO) 54.2 % (40.0-70.0); RED BLOOD CELL COUNT(AUTO) 2.69 MIL/uL (4.2-6.2); RED CELL DISTRIBUTION WIDTH 22.4 % (9.0-15.0); WHITE BLOOD COUNT (AUTO) 7.3 K/uL (4.8-10.8)
[2021-03-27 13:04] LABS: PLATELET COUNT (AUTO) 36 K/uL (130-430)
--- NOTE | 2021-03-27 15:12 | NUR ---
ALERT, ORIENTED, NO COMPLAINT PER OT SUGGESTION, IT IS UNSAFE TO LET PATIENT AMBULATE TO THE BATHROOM, ESPECIALLY HER LEFT LEG, SUGGESTED TOE TOUCH , NOT FULL WEIGHT BEARING, AND WC IN THE ROOM . IN LIGHT OF THE ROOM SHARED BY 2 PATIENTS, NO SPACE FOR THE WC, ASKED WHETHER WE CAN GET HER A BSC. PATIENT DID NOT WANT TO USE BSC PT JUAN ORDERED DR SANCHEZ, KARINA PAGED, TO SEE WHETHER HE WILL INSERT A PORT-A-CATH , IN PREPARATION OF CHEMO, OUTPATIENT , ONCE DISCHARGED TO HOME. AWAITING RETURN PHONE CALL BEFORE NPO ORDER PUT IN FOR TOMORROW.
--- NOTE | 2021-03-27 15:20 | NUR ---
Patient was seen for OT evaluation. Received new WB status for Left LE, TTWB. Patient and family educate safe transfers using FWW following TTWB. Pt needs extensive cueings to assume correct wt. bearing. Will continue to educate pt in next tx sessions. Nursing notified about pt's performance during evaluation. Pls see OT eval form in chart for more details. Pt will be doing OT tx QD 5 x/wk.
[2021-03-27 16:00] VITALS: BP_SYST 128
--- NOTE | 2021-03-27 17:41 | NUR ---
walked to the bathroom with walker, and standby assistance. with a limp on Left leg, ( hairline fx), [employer] called back, and will insert a port-a-cath , in preparation for chemo once, discharged to home. patient made aware she is NPO after midnite for the procedure in am.
[2021-03-27 20:27] VITALS: BP_SYST 124
[2021-03-28 00:05] VITALS: BP_SYST 117
[2021-03-28 05:56] LABS: BILIRUBIN,URINE NEGATIVE (NEGATIVE); BLOOD, URINE 3+ (NEGATIVE); CLARITY/URINE CLEAR (CLEAR); COLOR,URINE YELLOW (YELLOW); GLUCOSE,URINE NEGATIVE (NEGATIVE); KETONES,URINE NEGATIVE (NEGATIVE); LEUKOCYTE ESTERASE ,URINE NEGATIVE (NEGATIVE); NITRITE, URINE NEGATIVE (NEGATIVE); PH,URINE 7.5 (5.0-8.0); PROTEIN URINE NEGATIVE (NEGATIVE)
[2021-03-28 06:24] LABS: BACTERIA,URINE RARE /HPF (None Seen); RBC,URINE 50-80 /HPF (0-3)
[2021-03-28 06:25] LABS: MUCUS,URINE None Seen /LPF (None Seen)
[2021-03-28 07:28] LABS: BASOPHILS % (AUTO) 0.5 % (0.0-2.0); EOSINOPHILS # (AUTO) 0.1 K/uL (0.0-0.4); EOSINOPHILS % (AUTO) 1.9 % (0.0-4.0); LYMPHOCYTES # (AUTO) 2.4 K/uL (1.0-5.5); LYMPHOCYTES % (AUTO) 35.9 % (20.5-51.5); MEAN CORPUSCULAR HEMOGLOBIN 30 pg (27-31); MEAN CORPUSCULAR HGB CONC 33 % (32-36); MEAN CORPUSCULAR VOLUME 89 fL (79.0-98.0); MONOCYTES # (AUTO) 0.7 K/uL (0.0-1.0); NEUTROPHILS # (AUTO) 3.5 K/uL (1.8-7.7); NEUTROPHILS % (AUTO) 51.7 % (40.0-70.0); RED BLOOD CELL COUNT(AUTO) 2.37 MIL/uL (4.2-6.2); RED CELL DISTRIBUTION WIDTH 22.1 % (9.0-15.0); WHITE BLOOD COUNT (AUTO) 6.7 K/uL (4.8-10.8)
[2021-03-28 07:55] LABS: CALCIUM 7.4 mg/dL (8.4-11.0); CREATININE 0.56 mg/dL (0.55-1.30)
[2021-03-28 08:00] VITALS: BP_SYST 129
[2021-03-28 08:00] LABS: HEMATOCRIT 21.1 % (36-48); PLATELET COUNT (AUTO) 35 K/uL (130-430)
--- NOTE | 2021-03-28 09:00 | NUR ---
received report of critical lab of Hgb 7, Htc 21.1, Plt 35. contacted Dr. Park and notified of critical lab results and notified that the patient is scheduled for a austin cath surgical placement today at 1430. Dr. Park ordered to transfuse patient with 1 unit PRBCs and 1 unit of platelets. will transfuse and continue to monitor.
[2021-03-28] MEDS: CALCIUM CARBONATE/VITAMIN D3 1 TAB TABLET PO SCH ×2 (09:09→21:10)
[2021-03-28] MEDS: FOLIC ACID 1 MG TABLET PO SCH (09:09)
[2021-03-28] MEDS: PANTOPRAZOLE SODIUM 40 MG TAB PO SCH ×2 (09:09→21:10)
--- NOTE | 2021-03-28 09:30 | NUR ---
blood bank paperwork brought to lab completely filled out for the order of 1unit PRBC and 1unit of platelets.
--- NOTE | 2021-03-28 10:00 | NUR ---
called blood bank to follow up on transfusion progress. Blood bank states that they need to order the platelets and have them delivered. asked what time PRBC and platelets will be ready, liliam in the lab stated she will have to call and find out. asked if they could contact nurse once an estimate is available since the patient is supposed to have surgery today at 1430. liliam stated that she will let the nurse know
--- NOTE | 2021-03-28 10:27 | NUR ---
spoke with surgery, notified of H/H and platelets and orders to transfuse, states will have them call back with questions and if they want to make any changes to surgery time
--- NOTE | 2021-03-28 11:20 | NUR ---
SPOKE WITH SURGERY, NOTIFIED OF HGB 7, HTC 21.1, PLT [address] LAMBERT ORDERED FOR 1 UNIT PRBC TO BE GIVEN AND 1 UNIT PLATELETS TO BE GIVEN. MADE AWARE AND ASKED IF WANTS TO CONTINUE WITH SURGERY AT SCHEDULED TIME SINCE THE BLOOD BANK IS UNSURE OF WHEN THEY WILL HAVE THE UNITS READY. SURGERY TEAM STATED THEY WILL GO AHEAD WITH THE NORMA CATH PLACEMENT AFTER 1500 AND IF BLOOD PRODUCTS ARE RECEIVED TO GIVE THEM BUT IF THEY ARE UNAVAILABLE THEY WILL STILL CONTINUE WITH PLACEMENT.
[2021-03-28 11:32] VITALS: BP_SYST 124
--- NOTE | 2021-03-28 13:54 | NUR ---
Physical Therapy order has been received and the chart reviewed. Patient is presently having blood transfusion and will have surgery later today. Therefore, PT evaluation will be attempted tomorrow.
--- NOTE | 2021-03-28 15:31 | NUR ---
Patient was not seen for OT treatment, patient was having blood transfusion this pm. Patient aware and nursing notified.
[2021-03-28] MEDS ORDERED: MIDAZOLAM HCL 5 MG/5 ML VIAL IVP ONE (15:45)
[2021-03-28] MEDS ORDERED: LIDOCAINE 1% 10 MG/ML, 20 ML MDV INJ ONE (15:45)
[2021-03-28] MEDS ORDERED: fentaNYL CITRATE/PF 100 MCG/2 ML AMP IVP ONE (15:45)
[2021-03-28] MEDS ORDERED: PROPOFOL 200MG/ 20ML VIAL (DIPRIVAN) IV ONE (15:45)
[2021-03-28] MEDS ORDERED: NS 100 ML BAG IV ONE (15:45)
[2021-03-28] MEDS ORDERED: CEFAZOLIN 2 GM IVPB PREMIX 50 ML IV ONE (15:45)
--- NOTE | 2021-03-28 16:00 | NUR ---
RETURNED FROM [facility], PER CHARGE NURSE YARELI, PATIENT WAS TAKEN TO THE OR, CONSENTS WERE SIGNED, SHE PROVIDED PLATELETS FROM LAB TO THE OR STAFF, PATIENT PACKED RED BLOOD CELLS TRANSFUSED, WILL AWAIT PATIENTS ARRIVAL BACK FROM THE OR.
[2021-03-28] MEDS ORDERED: ONDANSETRON HCL 4 MG/2 ML VIAL IVP PRN (16:15)
[2021-03-28] MEDS ORDERED: fentaNYL CITRATE/PF 100 MCG/2 ML AMP IVP PRN ×2 (16:15)
[2021-03-28] MEDS ORDERED: METOCLOPRAMIDE HCL 10 MG/2 ML VIAL IVP PRN (16:15)
[2021-03-28] MEDS: fentaNYL CITRATE/PF 100 MCG/2 ML AMP ONE ×2 (17:07→17:30)
--- NOTE | 2021-03-28 17:50 | NUR ---
PATIENT ARRIVED BACK FROM PACU, NORMA CATH PLACED IN RIGHT UPPER CHEST, DERMABOND USED TO SEAL WOUND, BANDADE IN PLACE ON LEFT NECK FOR FAILED ATTEMPT SITE, REPORTED FROM PACU NURSE FRED. A/OX4, NO PAIN, BED IN LOWEST LOCKED POSITION, VITALS STABLE.
--- NOTE | 2021-03-28 19:25 | NUR ---
OPENING NOTES ENDORSED CAR FROM DAY SHIFT.PT UIS SITTING UP IN BED WITH FAMILY. NO APPARENT DISTRESS NOTED AT THIS TIME. SAFETY AND FALL PRECAUTIONS IN PLACE, CALL LIGHT WITHIN REACH. HELPED PT AMBULATE TO BATHROOM S/P PORT PLACEMENT
[2021-03-28 20:00] VITALS: BP_SYST 125
--- NOTE | 2021-03-28 23:00 | NUR ---
ROUNDING PT NEEDED TO USE RESTROOM, HELPED PT AMBULATE TO BATHROOM. CHANGED PILLOW SHEET AND STRAIGHTENED BEDDING. PT DENIES NEEDING ANYTHING AT THIS TIME.
[2021-03-29 02:09] VITALS: BP_SYST 127
--- NOTE | 2021-03-29 07:04 | NUR ---
CLOSING NOTES ENDORSED CARE TO DAY SHIFT. PT IS IN BED WITH EYES CLOSED. NO APPARENT DISTRESS NOTED AT THIS TIME. FALL AND SAFETY PRECAUTIONS IN PLACE. BED IN LOWEST POSITION WITH CALL LIGHT WITHIN REACH.
[2021-03-29 08:00] VITALS: BP_SYST 122
[2021-03-29 08:07] LABS: HEMATOCRIT 24.5 % (36-48); HEMOGLOBIN 8.2 g/dL (12.0-16.0); MEAN CORPUSCULAR HEMOGLOBIN 30 pg (27-31); MEAN CORPUSCULAR HGB CONC 33 % (32-36); MEAN CORPUSCULAR VOLUME 89 fL (79.0-98.0); PLATELET COUNT (AUTO) 62 K/uL (130-430); RED BLOOD CELL COUNT(AUTO) 2.77 MIL/uL (4.2-6.2); RED CELL DISTRIBUTION WIDTH 18.9 % (9.0-15.0)
[2021-03-29] MEDS: PANTOPRAZOLE SODIUM 40 MG TAB PO SCH (09:15)
[2021-03-29] MEDS: CALCIUM CARBONATE/VITAMIN D3 1 TAB TABLET PO SCH (09:15)
[2021-03-29] MEDS: FOLIC ACID 1 MG TABLET PO SCH (09:15)
--- NOTE | 2021-03-29 10:25 | NUR ---
Patient was seen for OT treatment, tolerated tx well. Denies any pain during and after tx. Educate on wt bearing precaution during functional mobility. Pls. see OT tx notes in chart for more details.
[2021-03-29 11:33] VITALS: BP_SYST 147
[2021-03-29 13:05] LABS: ATYPICAL LYMPHOCYTES % 1 % (0-0); BAND % (MANUAL) 4 % (0-6); BASOPHILS % (MANUAL) 0 % (0-2); EOSINOPHILS % (MANUAL) 2 % (0-7); LYMPHOCYTES % (MANUAL) 41 % (20-46); MONOCYTES % (MANUAL) 12 % (0-11)
--- NOTE | 2021-03-29 14:06 | NUR ---
A/OX4,VSS,AMBULATED WITH WALKER,NON WT BEARING LEFT LOWER EXTREMITY, D/C HOME PER DR AVILES.CALLED HCP DOCK CLERK ROSENDO AND SHE SAID HOME HEALTH RN AND PT HAS ARRANGED AND EQUIPMENT FOR WALKER & 3:1 COMMODE BEEN PROVIDED BY [employer]. D/C IV,D/C INSTRUCTION GIVEN AND EXPLAINED TO PT AND HER FAMILY. LEAVING VIA W/C.ACCOMPANIED BY FAMILY.
[2021-03-29] MEDS ORDERED: OSCD500 PO (15:53)
[2021-03-29] MEDS ORDERED: FOLI-43 PO (15:53)
[2021-03-29] MEDS ORDERED: PRO40 PO (15:53)
== END 2021-03-29 14:06 | disposition home or self-care (01) | DRG 545 ==
LOC: SED 11:15 → SMU 15:09 → STU 03-17 13:55 → SMU 03-28 13:52
PROVIDERS: ADMIT Internal Medicine Hospice and Palliative Medicine; ATTEND Internal Medicine Hospice and Palliative Medicine
PROC: 02H633Z Insertion of Infusion Device into Right Atrium, Percutaneous Approach (ICD-10-PCS; 2021-03-17)
PROC: B548ZZA Ultrasonography of Superior Vena Cava, Guidance (ICD-10-PCS; 2021-03-17)
PROC: 30233K1 Transfusion of Nonautologous Frozen Plasma into Peripheral Vein, Percutaneous Approach (ICD-10-PCS; 2021-03-20)
PROC: 30233N1 Transfusion of Nonautologous Red Blood Cells into Peripheral Vein, Percutaneous Approach (ICD-10-PCS; 2021-03-20)
PROC: B518ZZA Fluoroscopy of Superior Vena Cava, Guidance (ICD-10-PCS; 2021-03-28)
PROC: B548ZZA Ultrasonography of Superior Vena Cava, Guidance (ICD-10-PCS; 2021-03-28)
PROC: 30233R1 Transfusion of Nonautologous Platelets into Peripheral Vein, Percutaneous Approach (ICD-10-PCS; 2021-03-28)
PROC: 02HV33Z Insertion of Infusion Device into Superior Vena Cava, Percutaneous Approach (ICD-10-PCS; principal; 2021-03-28 15:47)
DX: M31.19 Other thrombotic microangiopathy (principal); S32.402A Unspecified fracture of left acetabulum, initial encounter for closed fracture; D25.2 Subserosal leiomyoma of uterus; N93.9 Abnormal uterine and vaginal bleeding, unspecified; N92.0 Excessive and frequent menstruation with regular cycle; C50.911 Malignant neoplasm of unspecified site of right female breast; D64.9 Anemia, unspecified; Z20.822 Contact with and (suspected) exposure to COVID-19; E80.6 Other disorders of bilirubin metabolism; D72.819 Decreased white blood cell count, unspecified; N63.10 Unspecified lump in the right breast, unspecified quadrant; Z85.3 Personal history of malignant neoplasm of breast
CPT/HCPCS: 36415; 71045; 71260-TC; 73502; 76000; 76376; 76856-TC; 78306; 80048; 80053; 81000; 82247; 82248; 82306; 82607; 82728; 82746; 83010; 83540; 83550; 83615; 85007; 85018; 85025; 85027; 85044; 85384; 85610-TC; 85730-TC; 86300; 86880-TC; 86886; 86900; 86901; 86920; 93005; 93971; 96374; 97530-GO; 97535-GO; 99285; A9503; C1788; G0378; J0610; J0690; J1030; J1100; J1200; J1644; J2001; J2250; J2704; J2765; J3010; P9021; P9034; P9041; P9046; P9059; Q9964; Q9967

== ENCOUNTER 2021-05-25 16:41 | Inpatient (IN) | payer BC ==
[~2021-05-25 16:41] MED LIST: FOLI-43 PO; OSCD500 PO; PRO40 PO
--- NOTE | 2021-05-26 12:00 | NUR ---
RECEIVED PT DIRECT ADMIT UNDER THE CARE OF DR LAMBERT. PAGED FOR ORDERS.
--- NOTE | 2021-05-26 12:37 | NUR ---
ATTENDING ONCO/SOLO DR LAMBERT WAS CALLED FOR ADMITTING ORDERS.
[2021-05-26 13:00] VITALS: BP_SYST 109
[2021-05-26 13:02] VITALS: BP_SYST 109
[2021-05-26] MEDS ORDERED: DIPHENHYDRAMINE INJ 50 MG/ML VIAL IVP ONE (13:15)
--- NOTE | 2021-05-26 16:16 | NUR ---
IV ACCESS STARTED ON LEFT FOREARM #20. PT TOLERATED WELL. IV SITE HAS GOOD BLOOD RETURN.
[2021-05-26 18:00] VITALS: BP_SYST 135
--- NOTE | 2021-05-26 18:00 | NUR ---
DR LAMBERT WAS HER AND SEEN PT. SAID THAT PT'S HGB WAS 6.
--- NOTE | 2021-05-26 18:00 | NUR ---
BLOOD TRANSFUSION STARTED. PT GIVEN PRE MED OF BENADRYL. PT COMPLAIN OF FEELING ANXIOUS AFTER RECEIVING BENADRYL . DR LAMBERT IS AWARE. WILL CONT TO MONITOR PT.
[2021-05-26 18:15] VITALS: BP_SYST 116
[2021-05-26 19:00] VITALS: BP_SYST 120
--- NOTE | 2021-05-26 19:15 | NUR ---
change of shift.pt.presents hx;breast cancer;rt.breast.pt.presents s/p chemo therapy/rxt.pt.presents rt.svc;port/cath.dsg intact.pt.presents iv access location lt.forearm intact;patent.pt.receiving blood transfusion:#1/2 units..no c/o pain,nausea. general status stable.respiratory status stable@room air.call light/telephone w/in access of the pt.
[2021-05-26 20:00] VITALS: BP_SYST 120
--- NOTE | 2021-05-26 20:00 | NUR ---
pt.assessed.v/s assessed values wnl.iv access intact;patent.blood transfusion:#1/2 units transfusion in progress.no c/pain,nausea.pt.capable to reposition self/ambulate unassisted.i have apprised the pt.that snacks/beverages are available w/in the shift.no requests posited@this hour.call light/telephone w/in access of the pt.
--- NOTE | 2021-05-26 22:10 | NUR ---
pt.assessed.v/s assessed values wnl.iv access intact;patent i have initiated the blood transfusion:#2 units.no c/o pain, nausea.no requests posited@this hour.pt.capable to reposition self/ambulate.call light/telephone w/in access of the pt.
--- NOTE | 2021-05-27 | NUR ---
pt.assessed.v/s assessed values wnl.no c/o pain,nausea.no requests posited@this hour.iv access intact;patent blood transfusion in progress.pt.capable reposition self.call light/telephone w/in access of the pt.
[2021-05-27 00:53] VITALS: BP_SYST 121
--- NOTE | 2021-05-27 02:00 | NUR ---
pt.assessed.pt.presents quiescent affect;calm,somnolent.per flacc pain mgx pt.absnt facial grimaces/body posturing. pt.capabled to reposition self.call light/telephone w/in access of the pt.
--- NOTE | 2021-05-27 04:00 | NUR ---
pt.assessed.pt.presents quiescent affect calm,somnolent.per flacc pain mgx pt.absent facial grimaces/body posturing. pt.capable to reposition self.calm light/telephone w/in access of the pt.
--- NOTE | 2021-05-27 06:00 | NUR ---
pt.assessed.pt.presents quiescent affect calm,resting.no c/o pain,nausea.no requests posited@this hour.i have reviewed the d/c paperwork w pt. i have d/c the sdch pt.id-band.iv access remained to be d/c@time of d/c.pt.capable to reposition self.call light/telephone w/in access of the pt.
[2021-05-27 07:39] VITALS: BP_SYST 122
--- NOTE | 2021-05-27 08:00 | NUR ---
OPENING NOTES: PATIENT RESTING IN BED. BREATHING EVEN AND NON LABORED TO RA. FALL, SAFETY AND ASPIRATION MEASURES REINFORCED. CALL LIGHT WITHIN REACH.
[2021-05-27 08:35] LABS: CALCIUM 7.5 mg/dL (8.4-11.0); CREATININE 0.59 mg/dL (0.55-1.30); POTASSIUM 3.7 mmol/L (3.5-5.1)
[2021-05-27 08:37] LABS: HEMATOCRIT 23.5 % (36-48); HEMOGLOBIN 7.9 g/dL (12.0-16.0); MEAN CORPUSCULAR HEMOGLOBIN 31 pg (27-31); MEAN CORPUSCULAR HGB CONC 34 % (32-36); MEAN CORPUSCULAR VOLUME 93 fL (79.0-98.0); PLATELET COUNT (AUTO) 105 K/uL (130-430); RED BLOOD CELL COUNT(AUTO) 2.52 MIL/uL (4.2-6.2); RED CELL DISTRIBUTION WIDTH 19.2 % (9.0-15.0); WHITE BLOOD COUNT (AUTO) 3.2 K/uL (4.8-10.8)
--- NOTE | 2021-05-27 10:30 | NUR ---
D/C Patient Patient given medication reconciliation form and D/C instructions. Exit Care provided. Patient verbalized understanding. MD discussed with patient the results and treatment provided. Ambulatory with steady gait for discharge to home. Patient in stable condition, ID band removed. IV catheter removed, intact and dressing applied, no active bleeding. All belongings sent with patient.
[2021-05-27 11:01] LABS: TOTAL IRON BIND. CAPACITY 298 ug/dL (250-450)
[2021-05-27 14:24] LABS: ATYPICAL LYMPHOCYTES % 1 % (0-0); BAND % (MANUAL) 5 % (0-6); BASOPHILS % (MANUAL) 0 % (0-2); CORRECTED WHITE BLOOD COUNT 2.5 K/uL (4.5-11.0); EOSINOPHILS % (MANUAL) 1 % (0-7); LYMPHOCYTES % (MANUAL) 25 % (20-46); METAMYELOCYTES % 2 % (0-0); MONOCYTES % (MANUAL) 7 % (0-11); MYELOCYTES % 2 % (0-0)
[2021-05-28 08:06] LABS: FOLATE (FOLIC ACID) 19.5 ng/mL (>3.0)
== END 2021-05-27 10:30 | disposition home or self-care (01) | DRG 812 ==
LOC: SMU 05-26 11:52
PROVIDERS: ADMIT Specialist; ATTEND Specialist
PROC: 30233N1 Transfusion of Nonautologous Red Blood Cells into Peripheral Vein, Percutaneous Approach (ICD-10-PCS; principal; 2021-05-26)
DX: D64.81 Anemia due to antineoplastic chemotherapy (principal); Z20.822 Contact with and (suspected) exposure to COVID-19; C50.919 Malignant neoplasm of unspecified site of unspecified female breast; D69.6 Thrombocytopenia, unspecified; Z79.899 Other long term (current) drug therapy; Z88.2 Allergy status to sulfonamides; Z88.8 Allergy status to other drugs, medicaments and biological substances
CPT/HCPCS: 36415; 80053; 82607; 82728; 82746; 83540; 83550; 85007; 85027; 86300; 86886; 86900; 86901; 86920; J1200; P9021

== ENCOUNTER 2023-03-17 22:13 | Emergency (ER) | payer BC ==
[~2023-03-17] VITALS: Ht 152.4 cm; Wt 63.5 kg
[2023-03-17 23:00] VITALS: BP_SYST 138; PULSE 83; RESP 17; TEMP 98.8; O2SAT 97
[2023-03-17 23:35] LABS: BILIRUBIN,URINE NEGATIVE (NEGATIVE); BLOOD, URINE NEGATIVE (NEGATIVE); CLARITY/URINE CLEAR (CLEAR); COLOR,URINE YELLOW (YELLOW); GLUCOSE,URINE NEGATIVE (NEGATIVE); KETONES,URINE TRACE (NEGATIVE); LEUKOCYTE ESTERASE ,URINE TRACE (NEGATIVE); NITRITE, URINE NEGATIVE (NEGATIVE); PROTEIN URINE TRACE (NEGATIVE); UROBILINOGEN,URINE 0.2 (0.2-1.0)
[2023-03-18 00:17] LABS: RBC,URINE 0-3 /HPF (0-3); WBC,URINE 0-3 /HPF (0-3)
[2023-03-18 00:18] LABS: BACTERIA,URINE RARE /HPF (None Seen)
[2023-03-18] MEDS ORDERED: MORPHINE 4 MG INJ. 4 MG/ML VIAL IVP ONE (02:15)
[2023-03-18] MEDS ORDERED: ONDANSETRON HCL 4 MG/2 ML VIAL IVP ONE (02:15)
[2023-03-18 03:02] LABS: BASOPHILS % (AUTO) 0.4 % (0.0-2.0); EOSINOPHILS % (AUTO) 0.6 % (0.0-4.0); HEMATOCRIT 32.7 % (36-48); HEMOGLOBIN 10.9 g/dL (12.0-16.0); LYMPHOCYTES # (AUTO) 0.9 K/uL (1.0-5.5); LYMPHOCYTES % (AUTO) 11.4 % (20.5-51.5); MEAN CORPUSCULAR HEMOGLOBIN 30 pg (27-31); MEAN CORPUSCULAR HGB CONC 33 % (32-36); MEAN CORPUSCULAR VOLUME 90 fL (79.0-98.0); MONOCYTES # (AUTO) 0.4 K/uL (0.0-1.0); MONOCYTES % (AUTO) 5.1 % (1.7-9.3); NEUTROPHILS # (AUTO) 6.3 K/uL (1.8-7.7); NEUTROPHILS % (AUTO) 82.5 % (40.0-70.0); PLATELET COUNT (AUTO) 346 K/uL (130-430); RED BLOOD CELL COUNT(AUTO) 3.64 MIL/uL (4.2-6.2); RED CELL DISTRIBUTION WIDTH 15.8 % (9.0-15.0); WHITE BLOOD COUNT (AUTO) 7.6 K/uL (4.8-10.8)
[2023-03-18 03:10] LABS: ALANINE AMINOTRANSFERASE 27 U/L (12-78); ALBUMIN 3.9 g/dL (3.4-4.8); ANION GAP 13 (5-15); ASPARTATE AMINOTRANSFERASE 64 U/L (10-37); CALCIUM 9.3 mg/dL (8.4-11.0); CARBON DIOXIDE 21 mmol/L (23-29); CHLORIDE 103 mmol/L (98-107); CREATININE 0.95 mg/dL (0.55-1.30); GFR AFRICAN AMERICAN 81 mL/min (>90); GLUCOSE 137 mg/dL (74-106); SODIUM SERUM 137 mmol/L (136-145); TOTAL BILIRUBIN 0.7 mg/dL (0.0-1.0); TOTAL PROTEIN, SERUM 7.8 g/dL (6.4-8.3); UREA NITROGEN, BLOOD 14 mg/dL (8-21)
[2023-03-18 03:13] LABS: LIPASE 29 U/L (16-77)
[2023-03-18 03:34] LABS: GFR NON AFRICAN-AMERICAN 67 mL/min (>90)
[2023-03-18] MEDS ORDERED: CYCL10TA24 PO (05:47)
[2023-03-18] MEDS ORDERED: OXYC-874 PO (05:47)
[2023-03-18 06:01] VITALS: BP_SYST 129; PULSE 81; RESP 17; TEMP 98.7; O2SAT 98
== END 2023-03-18 06:01 | disposition home or self-care (01) ==
LOC: SED 22:13
DX: R10.2 Pelvic and perineal pain (principal); R11.0 Nausea; R07.9 Chest pain, unspecified; Z88.2 Allergy status to sulfonamides; Z91.013 Allergy to seafood; Z79.899 Other long term (current) drug therapy
CPT/HCPCS: 99285; 80053; 81001; 83690; 85025; 87086; 84484; 36415; 81000; 71250; 96374; 96375; 93005; 76376; 74176; 81015; J2405; J2270

== ENCOUNTER 2023-07-18 13:18 | Emergency (ER) | payer BC ==
[~2023-07-18] VITALS: Ht 152.4 cm; Wt 59.0 kg
[~2023-07-18 13:18] MED LIST changes: +CYCL10TA24 PO; +OXYC-874 PO
[2023-07-18 13:29] VITALS: BP_SYST 163; PULSE 108; RESP 18; TEMP 99.2; O2SAT 97
[2023-07-18] MEDS ORDERED: VALA10002 PO (13:57)
[2023-07-18] MEDS ORDERED: PEG15DRO12 RIGHT EYE (13:57)
[2023-07-18] MEDS ORDERED: PETR3.5O RIGHT EYE (13:57)
[2023-07-18] MEDS ORDERED: PRED20TA PO (13:57)
[2023-07-18 14:09] VITALS: BP_SYST 163; PULSE 108; RESP 18; TEMP 99.2; O2SAT 97
== END 2023-07-18 14:08 | disposition home or self-care (01) ==
LOC: SED 13:18
DX: G51.0 Bell's palsy (principal); R03.0 Elevated blood-pressure reading, without diagnosis of hypertension; Z88.2 Allergy status to sulfonamides; Z88.8 Allergy status to other drugs, medicaments and biological substances; Z85.3 Personal history of malignant neoplasm of breast; Z79.899 Other long term (current) drug therapy
CPT/HCPCS: 99283

== ENCOUNTER 2023-08-28 19:49 | Inpatient (IN) | payer BC ==
[~2023-08-28] VITALS: Ht 152.4 cm; Wt 54.9 kg
[~2023-08-28 19:49] MED LIST changes: +PEG15DRO12 RIGHT EYE; +PETR3.5O RIGHT EYE; +PRED20TA PO; +VALA10002 PO
[2023-08-28 19:57] VITALS: BP_SYST 140; PULSE 125; RESP 16; TEMP 97.7; O2SAT 96
[2023-08-28 20:32] LABS: BASOPHILS % (AUTO) 0.8 % (0.0-2.0); EOSINOPHILS # (AUTO) 0.1 K/uL (0.0-0.4); LYMPHOCYTES # (AUTO) 1.6 K/uL (1.0-5.5); MONOCYTES # (AUTO) 0.6 K/uL (0.0-1.0); NEUTROPHILS # (AUTO) 3.6 K/uL (1.8-7.7)
[2023-08-28 20:49] LABS: COVID19 ANTIGEN SOFIA FIA NEGATIVE (NEGATIVE)
[2023-08-28 20:55] LABS: INFLUENZA TYPE A Negative (NEGATIVE); INFLUENZA TYPE B NEGATIVE (NEGATIVE)
[2023-08-28 21:07] LABS: ANION GAP 14 (5-15); CARBON DIOXIDE 25 mmol/L (23-29); CHLORIDE 100 mmol/L (98-107); CREATINE KINASE, TOTAL 70 U/L (26-192); GFR AFRICAN AMERICAN 86 mL/min (>90); GLUCOSE 96 mg/dL (74-106); POTASSIUM 3.9 mmol/L (3.5-5.1); SODIUM SERUM 139 mmol/L (136-145); UREA NITROGEN, BLOOD 11 mg/dL (8-21)
[2023-08-28 21:08] LABS: BILIRUBIN,URINE NEGATIVE (NEGATIVE); BLOOD, URINE NEGATIVE (NEGATIVE); CLARITY/URINE CLEAR (CLEAR); COLOR,URINE YELLOW (YELLOW); GLUCOSE,URINE NEGATIVE (NEGATIVE); KETONES,URINE 1+ (NEGATIVE); LEUKOCYTE ESTERASE ,URINE NEGATIVE (NEGATIVE); NITRITE, URINE NEGATIVE (NEGATIVE); PROTEIN URINE TRACE (NEGATIVE); UROBILINOGEN,URINE 0.2 (0.2-1.0)
[2023-08-28 21:08] LABS: EOSINOPHILS % (AUTO) 2.1 % (0.0-4.0); HEMATOCRIT 31.7 % (36-48); HEMOGLOBIN 10.8 g/dL (12.0-16.0); LYMPHOCYTES % (AUTO) 26.7 % (20.5-51.5); MEAN CORPUSCULAR HEMOGLOBIN 32 pg (27-31); MEAN CORPUSCULAR HGB CONC 34 % (32-36); MEAN CORPUSCULAR VOLUME 95 fL (79.0-98.0); MONOCYTES % (AUTO) 9.7 % (1.7-9.3); NEUTROPHILS % (AUTO) 60.7 % (40.0-70.0); PLATELET COUNT (AUTO) 215 K/uL (130-430); RED BLOOD CELL COUNT(AUTO) 3.35 MIL/uL (4.2-6.2); RED CELL DISTRIBUTION WIDTH 18.8 % (9.0-15.0)
[2023-08-28 21:10] LABS: GFR NON AFRICAN-AMERICAN 71 mL/min (>90)
[2023-08-28] MEDS: NACL 0.9% 1,000 ML IV ONE (21:23)
[2023-08-28 21:27] LABS: RBC,URINE 0-3 /HPF (0-3)
[2023-08-28 21:28] LABS: BACTERIA,URINE RARE /HPF (None Seen); WBC,URINE 0-3 /HPF (0-3)
[2023-08-28 21:31] LABS: PROTHROMBIN TIME 10.8 SECS (9.5-12.5)
[2023-08-29 04:06] VITALS: BP_SYST 132; PULSE 97; RESP 18; TEMP 98.1; O2SAT 94
[2023-08-29 08:01] VITALS: BP_SYST 149; PULSE 96; RESP 12; TEMP 98.4; O2SAT 93
[2023-08-29 08:18] LABS: INR 1.1 (0.8-1.2); PROTHROMBIN TIME 10.9 SECS (9.5-12.5)
[2023-08-29 09:00] VITALS: O2SAT 95
[2023-08-29 11:07] VITALS: BP_SYST 127; PULSE 92; RESP 14; TEMP 97.8; O2SAT 99
[2023-08-29] MEDS: METOCLOPRAMIDE HCL 10 MG/2 ML VIAL IVP ONE (13:16)
[2023-08-29 15:22] VITALS: BP_SYST 152; PULSE 101; RESP 16; TEMP 96.8; O2SAT 98
[2023-08-29 19:15] LABS: BF APPEARANCE UNSPUN HAZY (CLEAR); BODY FLUID COLOR YELLOW (LT YELLOW); BODY FLUID SOURCE/ TYPE PLEURAL; BODY FLUID TOTAL VOLUME 1325 mL; SOURCE/TYPE ,BODY FLUID THORACENTESIS
[2023-08-29 20:00] VITALS: BP_SYST 143; PULSE 105; RESP 17; TEMP 98.3; O2SAT 95
[2023-08-29 22:18] LABS: BODY FLUID GLUCOSE 68 mg/dL; BODY FLUID TOTAL PROTEIN 3.6 g/dL
[2023-08-29 23:27] LABS: LYMPHOCYTES, BODY FLUID 52 %; MONOCYTES,BODY FLUID 47 %; NEUTROPHIL, BODY FLUID 1 %; RBC, BODY FLUID 1363 /uL; WBC, BODY FLUID 963 /uL
[2023-08-29 23:28] LABS: APPEARANCE,SPUN,BODY FLUID CLEAR (CLEAR)
[2023-08-30] VITALS: BP_SYST 137; PULSE 103; RESP 17; TEMP 98.7; O2SAT 98
[2023-08-30 08:14] LABS: BASOPHILS % (AUTO) 0.6 % (0.0-2.0); EOSINOPHILS # (AUTO) 0.1 K/uL (0.0-0.4); EOSINOPHILS % (AUTO) 1.8 % (0.0-4.0); HEMOGLOBIN 9.8 g/dL (12.0-16.0); LYMPHOCYTES # (AUTO) 1.3 K/uL (1.0-5.5); LYMPHOCYTES % (AUTO) 25.7 % (20.5-51.5); MEAN CORPUSCULAR HEMOGLOBIN 32 pg (27-31); MEAN CORPUSCULAR HGB CONC 33 % (32-36); MEAN CORPUSCULAR VOLUME 96 fL (79.0-98.0); MONOCYTES # (AUTO) 0.5 K/uL (0.0-1.0); MONOCYTES % (AUTO) 10.4 % (1.7-9.3); PLATELET COUNT (AUTO) 200 K/uL (130-430); RED BLOOD CELL COUNT(AUTO) 3.11 MIL/uL (4.2-6.2); RED CELL DISTRIBUTION WIDTH 18.9 % (9.0-15.0); WHITE BLOOD COUNT (AUTO) 4.9 K/uL (4.8-10.8)
[2023-08-30 08:24] LABS: CALCIUM 9.4 mg/dL (8.4-11.0); CREATININE 0.77 mg/dL (0.55-1.30)
[2023-08-30 09:00] VITALS: BP_SYST 133; PULSE 103; RESP 17; TEMP 97.7; O2SAT 96
[2023-08-30 10:24] LABS: NEUTROPHILS % (AUTO) 61.5 % (40.0-70.0)
[2023-08-30 10:25] VITALS: O2SAT 96
[2023-08-30 11:12] VITALS: BP_SYST 131; PULSE 107; RESP 16; TEMP 98; O2SAT 93
[2023-08-30 15:13] VITALS: BP_SYST 141; PULSE 107; RESP 15; TEMP 97.2; O2SAT 97
[2023-08-30 20:00] VITALS: BP_SYST 143; PULSE 112; RESP 18; TEMP 97.7; O2SAT 97
[2023-08-31] VITALS: BP_SYST 138; PULSE 98; RESP 18; TEMP 97.4; O2SAT 97
[2023-08-31 08:00] VITALS: O2SAT 99
[2023-08-31 08:24] VITALS: BP_SYST 129; PULSE 98; RESP 16; TEMP 98; O2SAT 95
[2023-08-31] MEDS ORDERED: [UNRECOGNIZED DRUG - OTHER] PO SCH (10:00)
[2023-08-31] MEDS ORDERED: ACETAMINOPHEN PO SCH (10:00)
[2023-08-31] MEDS ORDERED: OXYCODONE HCL PO SCH (10:00)
[2023-08-31 11:21] VITALS: BP_SYST 132; PULSE 95; RESP 15; TEMP 98; O2SAT 99
[2023-08-31] MEDS: FOLIC ACID 1 MG TABLET PO ONE (12:24)
[2023-08-31 14:14] VITALS: BP_SYST 122; PULSE 98; RESP 16; TEMP 98; O2SAT 97
[2023-08-31 14:19] LABS: TOTAL PROTEIN, SERUM 6.5 g/dL (6.4-8.3)
[2023-08-31] MEDS ORDERED: valACYclovir HCL 500 MG TABLET PO SCH (15:00)
[2023-08-31] MEDS ORDERED: CYCLOBENZAPRINE HCL 10 MG TABLET (FLEXERIL) PO SCH (15:00)
[2023-08-31] MEDS ORDERED: MIN OIL RIGHT EYE SCH (21:00)
[2023-08-31] MEDS ORDERED: CALCIUM CARBONATE/VITAMIN D3 1 TAB TABLET PO SCH (21:00)
[2023-08-31] MEDS ORDERED: SOD CHL RIGHT EYE SCH (21:00)
[2023-08-31] MEDS ORDERED: [UNRECOGNIZED DRUG - OTHER] RIGHT EYE SCH (21:00)
[2023-08-31] MEDS ORDERED: PANTOPRAZOLE SODIUM 40 MG TAB PO SCH (21:00)
[2023-08-31] MEDS ORDERED: PETROLAT WHT RIGHT EYE SCH (21:00)
[2023-09-01] MEDS ORDERED: predniSONE 20 MG TABLET PO SCH (09:00)
[2023-09-01] MEDS ORDERED: FOLIC ACID 1 MG TABLET PO SCH (09:00)
== END 2023-08-31 14:25 | disposition home or self-care (01) | DRG 199 ==
LOC: SED 19:49 → STU 08-29 02:14
PROVIDERS: ADMIT Specialist; ATTEND Specialist
PROC: 0W993ZZ Drainage of Right Pleural Cavity, Percutaneous Approach (ICD-10-PCS; principal; 2023-08-29)
DX: J93.9 Pneumothorax, unspecified (principal); J18.9 Pneumonia, unspecified organism; J90 Pleural effusion, not elsewhere classified; C79.89 Secondary malignant neoplasm of other specified sites; Z20.822 Contact with and (suspected) exposure to COVID-19; R79.89 Other specified abnormal findings of blood chemistry; D64.9 Anemia, unspecified; C50.919 Malignant neoplasm of unspecified site of unspecified female breast; Z88.2 Allergy status to sulfonamides; Z79.899 Other long term (current) drug therapy
CPT/HCPCS: 32555; 36415; 71045; 71046; 71275; 80048; 81000; 81001; 81015; 82550; 82947; 83605; 83615; 83880; 84155; 84157; 84484; 85025; 85379; 85384; 85610; 85730; 87040; 87070; 87086; 88108; 88305; 89051; 89060; 93005; 93971; 96360; 99285; G0378; J2765; Q9967

== ENCOUNTER 2023-09-04 11:50 | Emergency (ER) | payer BC ==
[~2023-09-04] VITALS: Ht 160 cm; Wt 63.5 kg
[2023-09-04 11:58] VITALS: BP_SYST 147; PULSE 103; RESP 22; TEMP 97.3; O2SAT 96
[2023-09-04 14:24] LABS: HEMOGLOBIN 9.4 g/dL (12.0-16.0); MEAN CORPUSCULAR HEMOGLOBIN 32 pg (27-31); MEAN CORPUSCULAR HGB CONC 33 % (32-36); MEAN CORPUSCULAR VOLUME 97 fL (79.0-98.0); PLATELET COUNT (AUTO) 224 K/uL (130-430); RED BLOOD CELL COUNT(AUTO) 2.98 MIL/uL (4.2-6.2); RED CELL DISTRIBUTION WIDTH 18.3 % (9.0-15.0); WHITE BLOOD COUNT (AUTO) 4.6 K/uL (4.8-10.8)
[2023-09-04 14:40] LABS: ALANINE AMINOTRANSFERASE 30 U/L (12-78); ALBUMIN 2.6 g/dL (3.4-4.8); ANION GAP 10 (5-15); ASPARTATE AMINOTRANSFERASE 80 U/L (10-37); BILIRUBIN,DIRECT 0.5 mg/dL (0.0-0.3); CALCIUM 9.2 mg/dL (8.4-11.0); CARBON DIOXIDE 26 mmol/L (23-29); CHLORIDE 106 mmol/L (98-107); CREATININE 0.78 mg/dL (0.55-1.30); GFR AFRICAN AMERICAN 101 mL/min (>90); GFR NON AFRICAN-AMERICAN 84 mL/min (>90); GLUCOSE 93 mg/dL (74-106); POTASSIUM 3.9 mmol/L (3.5-5.1); SODIUM SERUM 142 mmol/L (136-145); TOTAL BILIRUBIN 0.9 mg/dL (0.0-1.0); TOTAL PROTEIN, SERUM 6.1 g/dL (6.4-8.3); UREA NITROGEN, BLOOD 8 mg/dL (8-21)
[2023-09-04 14:59] VITALS: BP_SYST 130; PULSE 103; RESP 22; TEMP 97.3; O2SAT 96
[2023-09-04 15:06] LABS: BAND % (MANUAL) 4 % (0-6); BASOPHILS % (MANUAL) 0 % (0-2); EOSINOPHILS % (MANUAL) 2 % (0-7); LYMPHOCYTES % (MANUAL) 24 % (20-46); MONOCYTES % (MANUAL) 5 % (0-11)
== END 2023-09-04 16:12 | disposition home or self-care (01) ==
LOC: SED 11:50
DX: J90 Pleural effusion, not elsewhere classified (principal); R06.02 Shortness of breath; Z88.2 Allergy status to sulfonamides; Z85.3 Personal history of malignant neoplasm of breast
CPT/HCPCS: 36415; 71045; 80048; 80076; 83880; 84484; 85007; 85027; 93005; 99285

== ENCOUNTER 2023-09-12 14:25 | Inpatient (IN) | payer BC ==
[~2023-09-12] VITALS: Ht 152.4 cm; Wt 54.6 kg
[2023-09-12 14:40] VITALS: BP_SYST 158; PULSE 116; RESP 16; TEMP 98; O2SAT 99
[2023-09-12 15:24] LABS: BASOPHILS % (AUTO) 0.8 % (0.0-2.0); EOSINOPHILS # (AUTO) 0.1 K/uL (0.0-0.4); EOSINOPHILS % (AUTO) 1.9 % (0.0-4.0); HEMOGLOBIN 9.8 g/dL (12.0-16.0); LYMPHOCYTES # (AUTO) 1.1 K/uL (1.0-5.5); LYMPHOCYTES % (AUTO) 27.4 % (20.5-51.5); MEAN CORPUSCULAR HEMOGLOBIN 33 pg (27-31); MEAN CORPUSCULAR HGB CONC 34 % (32-36); MEAN CORPUSCULAR VOLUME 97 fL (79.0-98.0); MONOCYTES # (AUTO) 0.4 K/uL (0.0-1.0); MONOCYTES % (AUTO) 9.9 % (1.7-9.3); NEUTROPHILS # (AUTO) 2.4 K/uL (1.8-7.7); PLATELET COUNT (AUTO) 207 K/uL (130-430); RED BLOOD CELL COUNT(AUTO) 2.99 MIL/uL (4.2-6.2); WHITE BLOOD COUNT (AUTO) 4.1 K/uL (4.8-10.8)
[2023-09-12 15:48] LABS: ALBUMIN 2.9 g/dL (3.4-4.8); BILIRUBIN,DIRECT 0.5 mg/dL (0.0-0.3); CALCIUM 9.3 mg/dL (8.4-11.0); CREATININE 0.87 mg/dL (0.55-1.30); POTASSIUM 3.6 mmol/L (3.5-5.1); TOTAL PROTEIN, SERUM 6.7 g/dL (6.4-8.3)
[2023-09-12] MEDS ORDERED: iohexoL 350 mgI/mL, 100 ML INFUS..BTL IV ONE (16:15)
[2023-09-12] MEDS ORDERED: ZOLE4VIA IV (16:17)
[2023-09-12] MEDS ORDERED: CAPE500T15 PO (16:17)
[2023-09-12] MEDS: FUROSEMIDE 40 MG/4 ML VIAL IVP ONE (18:01)
[2023-09-12 20:15] VITALS: BP_SYST 133; PULSE 117; RESP 20; TEMP 98.9
[2023-09-12 22:13] VITALS: BP_SYST 133; PULSE 117; RESP 20; TEMP 98.9; O2SAT 95
[2023-09-12 23:56] VITALS: O2SAT 95
[2023-09-13] VITALS (7 sets, daily range): BP systolic 123–137; PULSE 95–110; RESP 16–18; TEMP 97.4–99; O2SAT 93–97
[2023-09-13 10:53] LABS: INR 1.1 (0.8-1.2)
[2023-09-13] MEDS: LORazepam 2 MG/ML VIAL IVP ONE (14:39)
[2023-09-13 17:48] LABS: INR 1.1 (0.8-1.2); PROTHROMBIN TIME 11.4 SECS (9.5-12.5)
[2023-09-13] MEDS: CAPECITABINE 500 MG PO SCH (22:32)
[2023-09-14] VITALS: BP_SYST 142; PULSE 102; RESP 18; TEMP 97.6; O2SAT 94
[2023-09-14 07:50] VITALS: BP_SYST 119; PULSE 91; RESP 15; TEMP 97.9; O2SAT 94
[2023-09-14] MEDS: HONEY WOUND DRESSING 1 EACH TP SCH (09:00)
[2023-09-14 09:35] VITALS: O2SAT 92
[2023-09-14 10:31] VITALS: BP_SYST 119; PULSE 91; O2SAT 94
[2023-09-14 10:47] VITALS: BP_SYST 119; PULSE 91; RESP 15; TEMP 97.9; O2SAT 94
[2023-09-14 12:52] VITALS: BP_SYST 118; PULSE 76; RESP 16; TEMP 98.7; O2SAT 97
== END 2023-09-14 12:00 | disposition home or self-care (01) | DRG 597 ==
LOC: SED 14:25 → SMU 17:21
PROVIDERS: ADMIT Specialist; ATTEND Specialist
PROC: 0W9B3ZZ Drainage of Left Pleural Cavity, Percutaneous Approach (ICD-10-PCS; principal; 2023-09-13)
DX: C50.912 Malignant neoplasm of unspecified site of left female breast (principal); J96.01 Acute respiratory failure with hypoxia; C79.51 Secondary malignant neoplasm of bone; C78.7 Secondary malignant neoplasm of liver and intrahepatic bile duct; J91.0 Malignant pleural effusion; C50.911 Malignant neoplasm of unspecified site of right female breast; Z79.899 Other long term (current) drug therapy; Z88.2 Allergy status to sulfonamides; Z88.8 Allergy status to other drugs, medicaments and biological substances
CPT/HCPCS: 32555; 36415; 71045; 71275; 80048; 80076; 85025; 85610; 85730; 87081; 93971; 99285; J1940; J2060; Q9967

== ENCOUNTER 2023-09-27 10:32 | Day surgery (SDC) | payer BC ==
[~2023-09-27] VITALS: Ht 152.4 cm; Wt 54.4 kg
[~2023-09-27 10:32] MED LIST changes: +CAPE500T15 PO; -PRED20TA PO; -VALA10002 PO; +ZOLE4VIA IV
[2023-09-27] MEDS ORDERED: MIDAZOLAM HCL 5 MG/5 ML VIAL ONE (11:10)
[2023-09-27] MEDS ORDERED: fentaNYL CITRATE/PF 100 MCG/2 ML AMP ONE (11:10)
[2023-09-27 15:34] VITALS: BP_SYST 110; PULSE 102; RESP 24
[2023-09-27 18:42] LABS: BF APPEARANCE UNSPUN HAZY (CLEAR); BODY FLUID COLOR YELLOW (LT YELLOW); BODY FLUID SOURCE/ TYPE PLEURAL; SOURCE/TYPE ,BODY FLUID PLEURAL
[2023-09-27 18:43] LABS: BODY FLUID TOTAL VOLUME 1485 mL; EOSINOPHIL, BODY FLUID 1 %; LYMPHOCYTES, BODY FLUID 92 %; MONOCYTES,BODY FLUID 6 %; NEUTROPHIL, BODY FLUID 1 %; RBC, BODY FLUID 2175 /uL; WBC, BODY FLUID 470 /uL
== END 2023-09-27 14:17 | disposition home or self-care (01) ==
LOC: SRD 10:32 → SMU 10:33 → SRD 14:17
PROVIDERS: ATTEND Radiology Diagnostic Radiology
DX: J90 Pleural effusion, not elsewhere classified (principal); C50.919 Malignant neoplasm of unspecified site of unspecified female breast; Z91.013 Allergy to seafood; Z88.8 Allergy status to other drugs, medicaments and biological substances
CPT/HCPCS: 32555; 71045; 82947; 84157; 88108; 88305; 89051; 89060; J2250; J3010

== ENCOUNTER 2023-10-03 16:55 | Inpatient (IN) | payer BC ==
[~2023-10-03] VITALS: Ht 152.4 cm; Wt 54.4 kg
[2023-10-03 17:08] VITALS: BP_SYST 126; PULSE 82; RESP 22; TEMP 98.3; O2SAT 98
[2023-10-03 18:41] LABS: INR 1.1 (0.8-1.2); PROTHROMBIN TIME 11.2 SECS (9.5-12.5)
[2023-10-03 18:43] LABS: HEMATOCRIT 28.1 % (36-48); HEMOGLOBIN 9.3 g/dL (12.0-16.0); MEAN CORPUSCULAR HEMOGLOBIN 34 pg (27-31); MEAN CORPUSCULAR HGB CONC 33 % (32-36); MEAN CORPUSCULAR VOLUME 102 fL (79.0-98.0); PLATELET COUNT (AUTO) 129 K/uL (130-430); RED BLOOD CELL COUNT(AUTO) 2.75 MIL/uL (4.2-6.2); RED CELL DISTRIBUTION WIDTH 20.2 % (9.0-15.0); WHITE BLOOD COUNT (AUTO) 4.7 K/uL (4.8-10.8)
[2023-10-03 19:04] LABS: ALANINE AMINOTRANSFERASE 20 U/L (12-78); ALBUMIN 2.7 g/dL (3.4-4.8); ANION GAP 10 (5-15); ASPARTATE AMINOTRANSFERASE 70 U/L (10-37); BILIRUBIN,DIRECT 0.5 mg/dL (0.0-0.3); CALCIUM 8.4 mg/dL (8.4-11.0); CARBON DIOXIDE 25 mmol/L (23-29); CHLORIDE 102 mmol/L (98-107); CREATININE 0.79 mg/dL (0.55-1.30); GFR AFRICAN AMERICAN 100 mL/min (>90); GFR NON AFRICAN-AMERICAN 83 mL/min (>90); GLUCOSE 102 mg/dL (74-106); POTASSIUM 3.6 mmol/L (3.5-5.1); SODIUM SERUM 137 mmol/L (136-145); TOTAL BILIRUBIN 1.2 mg/dL (0.0-1.0); UREA NITROGEN, BLOOD 11 mg/dL (8-21)
[2023-10-03 19:54] LABS: BAND % (MANUAL) 7 % (0-6); LYMPHOCYTES % (MANUAL) 37 % (20-46)
[2023-10-03 19:55] LABS: ANISOCYTOSIS 2+; BASOPHILS % (MANUAL) 0 % (0-2); EOSINOPHILS % (MANUAL) 3 % (0-7); MONOCYTES % (MANUAL) 4 % (0-11); OVALOCYTES FEW; PLATELET ESTIMATE DECREASED (ADEQUATE); TEAR DROP CELLS FEW
[2023-10-03 23:05] LABS: BILIRUBIN,URINE 1+ (NEGATIVE); BLOOD, URINE NEGATIVE (NEGATIVE); COLOR,URINE YELLOW (YELLOW); GLUCOSE,URINE NEGATIVE (NEGATIVE); KETONES,URINE 1+ (NEGATIVE); LEUKOCYTE ESTERASE ,URINE NEGATIVE (NEGATIVE); NITRITE, URINE NEGATIVE (NEGATIVE); PROTEIN URINE 2+ (NEGATIVE)
[2023-10-03 23:35] VITALS: BP_SYST 136; PULSE 81; RESP 20; TEMP 97.6
[2023-10-03 23:43] LABS: CLARITY/URINE SLIGHTLY CLOUDY (CLEAR)
[2023-10-03 23:46] LABS: BACTERIA,URINE RARE /HPF (None Seen); MUCUS,URINE 1+ /LPF (None Seen); RBC,URINE 0-3 /HPF (0-3)
[2023-10-04 00:11] VITALS: O2SAT 97
[2023-10-04 05:46] LABS: INR 1.1 (0.8-1.2)
[2023-10-04 08:00] VITALS: BP_SYST 129; PULSE 96; RESP 15; TEMP 98.8; O2SAT 97; O2SAT 99
[2023-10-04 12:07] VITALS: BP_SYST 120; PULSE 93; RESP 18; TEMP 98.4; O2SAT 95
[2023-10-04] MEDS ORDERED: ALBUMIN HUMAN 25% 50 ML IV ONE (13:00)
[2023-10-04] MEDS: PANTOPRAZOLE SODIUM 40 MG TAB PO ONE (13:11)
[2023-10-04] MEDS: POTASSIUM CHLORIDE 20 MEQ TABLET.ER PO ONE (13:12)
[2023-10-04] MEDS: FUROSEMIDE 20 MG/2 ML VIAL IVP ONE (13:15)
[2023-10-04] MEDS: ALBUMIN HUMAN 25% 50 ML IV SCH (13:46)
[2023-10-04] MEDS ORDERED: FUROSEMIDE 20 MG/2 ML VIAL IVP SCH (14:00)
[2023-10-04] MEDS: CYCLOBENZAPRINE HCL 10 MG TABLET (FLEXERIL) PO SCH (15:00)
[2023-10-04 16:35] VITALS: BP_SYST 128; PULSE 96; RESP 16; TEMP 98.8; O2SAT 97
[2023-10-04 19:00] VITALS: O2SAT 96
[2023-10-04 20:00] VITALS: BP_SYST 120; PULSE 96; RESP 18; TEMP 98.1; O2SAT 98
[2023-10-04] MEDS: CALCIUM CARBONATE/VITAMIN D3 1 TAB TABLET PO SCH (21:38)
[2023-10-05] VITALS (7 sets, daily range): BP systolic 109–130; PULSE 94–103; RESP 14–20; TEMP 97.2–99.3; O2SAT 96–100
[2023-10-05] MEDS: PANTOPRAZOLE SODIUM 40 MG TAB PO SCH (09:00)
[2023-10-05] MEDS: HONEY WOUND DRESSING 1 EACH TP SCH (09:00)
[2023-10-05 10:08] LABS: EOSINOPHILS # (AUTO) 0.1 K/uL (0.0-0.4); HEMOGLOBIN 9.4 g/dL (12.0-16.0); MONOCYTES % (AUTO) 7.3 % (1.7-9.3)
[2023-10-05 10:10] LABS: BASOPHILS % (AUTO) 0.6 % (0.0-2.0); EOSINOPHILS % (AUTO) 1.8 % (0.0-4.0); HEMATOCRIT 28.2 % (36-48); LYMPHOCYTES # (AUTO) 1.4 K/uL (1.0-5.5); LYMPHOCYTES % (AUTO) 28.9 % (20.5-51.5); MEAN CORPUSCULAR HEMOGLOBIN 34 pg (27-31); MEAN CORPUSCULAR HGB CONC 33 % (32-36); MEAN CORPUSCULAR VOLUME 101 fL (79.0-98.0); MONOCYTES # (AUTO) 0.3 K/uL (0.0-1.0); NEUTROPHILS # (AUTO) 2.9 K/uL (1.8-7.7); NEUTROPHILS % (AUTO) 61.4 % (40.0-70.0); PLATELET COUNT (AUTO) 110 K/uL (130-430); RED CELL DISTRIBUTION WIDTH 20.9 % (9.0-15.0)
[2023-10-05 10:12] LABS: WHITE BLOOD COUNT (AUTO) 4.7 K/uL (4.8-10.8)
[2023-10-05] MEDS: FOLIC ACID 1 MG TABLET PO SCH (10:25)
[2023-10-05 10:27] LABS: ALBUMIN 3.4 g/dL (3.4-4.8); CALCIUM 8.5 mg/dL (8.4-11.0); CREATININE 0.83 mg/dL (0.55-1.30); POTASSIUM 3.6 mmol/L (3.5-5.1); TOTAL BILIRUBIN 1.5 mg/dL (0.0-1.0); TOTAL PROTEIN, SERUM 6.5 g/dL (6.4-8.3)
[2023-10-05] MEDS: FUROSEMIDE 20 MG/2 ML VIAL IVP SCH (10:28)
[2023-10-06 00:15] VITALS: BP_SYST 123; PULSE 87; RESP 18; TEMP 98.1; O2SAT 97
[2023-10-06 08:00] VITALS: BP_SYST 124; PULSE 94; RESP 17; TEMP 97.5; O2SAT 98
[2023-10-06 08:30] VITALS: O2SAT 98
[2023-10-06 08:55] LABS: EOSINOPHILS # (AUTO) 0.1 K/uL (0.0-0.4); HEMOGLOBIN 8.5 g/dL (12.0-16.0); MONOCYTES # (AUTO) 0.4 K/uL (0.0-1.0)
[2023-10-06 08:58] LABS: BASOPHILS % (AUTO) 0.8 % (0.0-2.0); EOSINOPHILS % (AUTO) 2.3 % (0.0-4.0); LYMPHOCYTES # (AUTO) 1.5 K/uL (1.0-5.5); LYMPHOCYTES % (AUTO) 31.1 % (20.5-51.5); MEAN CORPUSCULAR HEMOGLOBIN 34 pg (27-31); MEAN CORPUSCULAR HGB CONC 33 % (32-36); MEAN CORPUSCULAR VOLUME 103 fL (79.0-98.0); MONOCYTES % (AUTO) 8.6 % (1.7-9.3); NEUTROPHILS # (AUTO) 2.8 K/uL (1.8-7.7); NEUTROPHILS % (AUTO) 57.2 % (40.0-70.0); PLATELET COUNT (AUTO) 94 K/uL (130-430); RED BLOOD CELL COUNT(AUTO) 2.52 MIL/uL (4.2-6.2); RED CELL DISTRIBUTION WIDTH 21.2 % (9.0-15.0)
[2023-10-06 10:03] LABS: CALCIUM 8.4 mg/dL (8.4-11.0); CREATININE 0.87 mg/dL (0.55-1.30); POTASSIUM 3.3 mmol/L (3.5-5.1)
[2023-10-06] MEDS: POTASSIUM CHLORIDE 20 MEQ TABLET.ER PO ONE (13:21)
[2023-10-06 20:00] VITALS: BP_SYST 119; BP_SYST 124; PULSE 110; PULSE 118; RESP 18; RESP 20; TEMP 97.8; TEMP 98.3; O2SAT 94; O2SAT 97
[2023-10-06 21:30] VITALS: O2SAT 97
[2023-10-07] VITALS (7 sets, daily range): BP systolic 110–120; PULSE 92–110; RESP 16–18; TEMP 97.6–99.6; O2SAT 94–97
[2023-10-07 06:50] LABS: CALCIUM 8.4 mg/dL (8.4-11.0); CREATININE 0.87 mg/dL (0.55-1.30); POTASSIUM 3.1 mmol/L (3.5-5.1)
[2023-10-07] MEDS: DOCUSATE SODIUM 100 MG CAPSULE PO PRN (12:22)
[2023-10-07] MEDS: POTASSIUM CHLORIDE 20 MEQ TABLET.ER PO ONE (12:22)
[2023-10-08] VITALS: BP_SYST 124; PULSE 107; RESP 18; TEMP 97.4; O2SAT 99
[2023-10-08 08:51] VITALS: BP_SYST 117; PULSE 101; RESP 18; TEMP 98.8; O2SAT 92
[2023-10-08 08:54] VITALS: O2SAT 92
[2023-10-08 09:08] LABS: HEMOGLOBIN 8.8 g/dL (12.0-16.0); RED BLOOD CELL COUNT(AUTO) 2.54 MIL/uL (4.2-6.2)
[2023-10-08 09:12] LABS: MEAN CORPUSCULAR HEMOGLOBIN 35 pg (27-31); MEAN CORPUSCULAR HGB CONC 34 % (32-36); MEAN CORPUSCULAR VOLUME 103 fL (79.0-98.0); PLATELET COUNT (AUTO) 84 K/uL (130-430); RED CELL DISTRIBUTION WIDTH 22.7 % (9.0-15.0); WHITE BLOOD COUNT (AUTO) 4.8 K/uL (4.8-10.8)
[2023-10-08 09:28] LABS: ALBUMIN 2.6 g/dL (3.4-4.8); CALCIUM 8.1 mg/dL (8.4-11.0); CREATININE 0.64 mg/dL (0.55-1.30); PHOSPHORUS 3.2 mg/dL (2.7-4.5); POTASSIUM 4.9 mmol/L (3.5-5.1); TOTAL BILIRUBIN 1.4 mg/dL (0.0-1.0); TOTAL PROTEIN, SERUM 5.1 g/dL (6.4-8.3)
[2023-10-08] MEDS: BUMEX 1 MG/4 ML VIAL IVP ONE (10:00)
[2023-10-08 11:15] VITALS: BP_SYST 116; PULSE 94; RESP 18; TEMP 98.6; O2SAT 96
[2023-10-08 11:25] LABS: BASOPHILS % (MANUAL) 0 % (0-2); CORRECTED WHITE BLOOD COUNT 4.5 K/uL (4.5-11.0); EOSINOPHILS % (MANUAL) 2 % (0-7); LYMPHOCYTES % (MANUAL) 28 % (20-46); MONOCYTES % (MANUAL) 11 % (0-11)
[2023-10-08 11:26] LABS: ANISOCYTOSIS 2+; PLATELET ESTIMATE DECREASED (ADEQUATE); POLYCHROMASIA 1+
[2023-10-08 15:10] VITALS: BP_SYST 106; PULSE 96; RESP 16; TEMP 98.3; O2SAT 97
[2023-10-08 20:00] VITALS: BP_SYST 125; PULSE 103; RESP 18; TEMP 97.7; O2SAT 98
[2023-10-09] VITALS: BP_SYST 111; PULSE 96; RESP 18; TEMP 97.4; O2SAT 95
[2023-10-09 08:10] VITALS: BP_SYST 112; PULSE 97; RESP 18; TEMP 98; O2SAT 95
[2023-10-09] MEDS ORDERED: SPIR25TA6 PO (11:29)
[2023-10-09 13:29] VITALS: BP_SYST 112; PULSE 89; RESP 18; TEMP 98; O2SAT 95
[2023-10-09 13:40] VITALS: BP_SYST 115; PULSE 89; RESP 18; TEMP 97.8; O2SAT 97
== END 2023-10-09 15:00 | disposition home or self-care (01) | DRG 597 ==
LOC: SED 16:55 → SMU 20:19 → OBSVTOIN 10-05 19:17
PROVIDERS: ADMIT Specialist; ATTEND Specialist
PROC: 0W9B30Z Drainage of Left Pleural Cavity with Drainage Device, Percutaneous Approach (ICD-10-PCS; principal; 2023-10-04)
PROC: 0W9930Z Drainage of Right Pleural Cavity with Drainage Device, Percutaneous Approach (ICD-10-PCS; 2023-10-09)
DX: C50.919 Malignant neoplasm of unspecified site of unspecified female breast (principal); J96.01 Acute respiratory failure with hypoxia; J91.0 Malignant pleural effusion; C79.9 Secondary malignant neoplasm of unspecified site; E44.1 Mild protein-calorie malnutrition; E88.09 Other disorders of plasma-protein metabolism, not elsewhere classified; E86.1 Hypovolemia; E87.70 Fluid overload, unspecified; E87.6 Hypokalemia; Z51.11 Encounter for antineoplastic chemotherapy; Z68.23 Body mass index [BMI] 23.0-23.9, adult; Z88.2 Allergy status to sulfonamides; Z85.3 Personal history of malignant neoplasm of breast; I50.9 Heart failure, unspecified
CPT/HCPCS: 32555; 36415; 71045; 80048; 80053; 80076; 81000; 81001; 81015; 83605; 83735; 83880; 84100; 84484; 85007; 85025; 85027; 85610; 85730; 87040; 87086; 93005; 93306; 93970; 99285; G0378; J1940; P9046

== ENCOUNTER 2023-10-18 10:37 | Day surgery (SDC) | payer BC ==
[~2023-10-18 10:37] MED LIST changes: +SPIR25TA6 PO
[2023-10-18 14:31] VITALS: O2SAT 96
[2023-10-18 16:48] VITALS: BP_SYST 143; PULSE 112; RESP 48
== END 2023-10-18 14:12 | disposition home or self-care (01) ==
LOC: SDS 10:37 → SMU 10:42 → SDS 14:12
PROVIDERS: ATTEND Radiology Diagnostic Radiology
DX: J90 Pleural effusion, not elsewhere classified (principal); Z88.2 Allergy status to sulfonamides; Z91.013 Allergy to seafood; Z80.3 Family history of malignant neoplasm of breast
CPT/HCPCS: 71045; 32555; C1729

== ENCOUNTER 2023-10-25 08:01 | Day surgery (SDC) | payer BC ==
[~2023-10-25] VITALS: Ht 177.8 cm; Wt 51.3 kg
[2023-10-25 10:51] VITALS: O2SAT 97
[2023-10-25 16:12] VITALS: BP_SYST 119; PULSE 99; RESP 26
== END 2023-10-25 12:07 | disposition home or self-care (01) ==
LOC: SRD 08:01 → SMU 08:02 → SRD 12:07
PROVIDERS: ATTEND Radiology Vascular & Interventional Radiology
DX: J90 Pleural effusion, not elsewhere classified (principal); J94.8 Other specified pleural conditions; C50.919 Malignant neoplasm of unspecified site of unspecified female breast; Z88.2 Allergy status to sulfonamides; Z91.013 Allergy to seafood
CPT/HCPCS: 71045; 32555; C1729

== ENCOUNTER 2023-10-28 13:15 | Emergency (ER) | payer BC ==
[~2023-10-28] VITALS: Ht 152.4 cm; Wt 50.8 kg
[2023-10-28 13:26] VITALS: BP_SYST 123; PULSE 118; RESP 22; TEMP 98.3; O2SAT 94
[2023-10-28] MEDS: ACETAMINOPHEN 325 MG TABLET PO ONE (15:49)
[2023-10-28] MEDS: DIPHTH,PERTUSS(ACELL),TET VAC 0.5 ML VIAL (Tdap) I.M. ONE (15:49)
[2023-10-28 16:49] VITALS: BP_SYST 116; PULSE 98; RESP 18; TEMP 98.3; O2SAT 96
== END 2023-10-28 18:00 | disposition home or self-care (01) ==
LOC: SED 13:15
DX: S30.0XXA Contusion of lower back and pelvis, initial encounter (principal); S50.01XA Contusion of right elbow, initial encounter; Z23 Encounter for immunization; Z85.3 Personal history of malignant neoplasm of breast; Z88.2 Allergy status to sulfonamides; Z88.8 Allergy status to other drugs, medicaments and biological substances; Z79.899 Other long term (current) drug therapy; Z79.2 Long term (current) use of antibiotics; W18.39XA Other fall on same level, initial encounter; Y93.89 Activity, other specified; Y92.89 Other specified places as the place of occurrence of the external cause; Y99.8 Other external cause status
CPT/HCPCS: 72100; 90715; 99284

== ENCOUNTER 2023-10-31 11:59 | Day surgery (SDC) | payer BC ==
[~2023-10-31] VITALS: Ht 154.9 cm; Wt 49.9 kg
[2023-10-31 12:41] VITALS: O2SAT 94
[2023-10-31 15:34] VITALS: BP_SYST 120; PULSE 113; RESP 53; TEMP 97.8
== END 2023-10-31 14:45 | disposition home or self-care (01) ==
LOC: SMU 11:59 → SRD 11:59
PROVIDERS: ATTEND Radiology Vascular & Interventional Radiology
DX: J90 Pleural effusion, not elsewhere classified (principal); J93.9 Pneumothorax, unspecified; Z88.2 Allergy status to sulfonamides; Z88.8 Allergy status to other drugs, medicaments and biological substances; Z98.890 Other specified postprocedural states; Z85.3 Personal history of malignant neoplasm of breast
CPT/HCPCS: 32555; 71045; C1729

== ENCOUNTER 2023-11-07 11:55 | Day surgery (SDC) | payer BC ==
[~2023-11-07] VITALS: Ht 152.4 cm; Wt 49.9 kg
[2023-11-07 12:32] VITALS: O2SAT 100
[2023-11-07 16:18] VITALS: BP_SYST 140; PULSE 123; RESP 33; TEMP 97.9
== END 2023-11-07 14:59 | disposition home or self-care (01) ==
LOC: SDS 11:55 → SMU 11:59 → SDS 14:59
PROVIDERS: ATTEND Radiology Vascular & Interventional Radiology
DX: J90 Pleural effusion, not elsewhere classified (principal); C50.911 Malignant neoplasm of unspecified site of right female breast; Z88.2 Allergy status to sulfonamides
CPT/HCPCS: 32555; 71045; J2001; C1729

== ENCOUNTER 2023-11-14 11:37 | Day surgery (SDC) | payer BC ==
[~2023-11-14] VITALS: Ht 152.4 cm; Wt 49.9 kg
[2023-11-14 12:22] LABS: BASOPHILS # (AUTO) 0.1 K/uL (0.0-0.2); BASOPHILS % (AUTO) 1.2 % (0.0-2.0); EOSINOPHILS % (AUTO) 1.1 % (0.0-4.0); HEMATOCRIT 29.8 % (36-48); HEMOGLOBIN 9.4 g/dL (12.0-16.0); LYMPHOCYTES # (AUTO) 1.4 K/uL (1.0-5.5); LYMPHOCYTES % (AUTO) 29.8 % (20.5-51.5); MEAN CORPUSCULAR HEMOGLOBIN 34 pg (27-31); MEAN CORPUSCULAR HGB CONC 32 % (32-36); MEAN CORPUSCULAR VOLUME 108 fL (79.0-98.0); MONOCYTES # (AUTO) 0.4 K/uL (0.0-1.0); MONOCYTES % (AUTO) 8.4 % (1.7-9.3); NEUTROPHILS # (AUTO) 2.8 K/uL (1.8-7.7); NEUTROPHILS % (AUTO) 59.5 % (40.0-70.0); PLATELET COUNT (AUTO) 141 K/uL (130-430); RED BLOOD CELL COUNT(AUTO) 2.77 MIL/uL (4.2-6.2); RED CELL DISTRIBUTION WIDTH 21.9 % (9.0-15.0); WHITE BLOOD COUNT (AUTO) 4.6 K/uL (4.8-10.8)
[2023-11-14 12:40] LABS: PROTHROMBIN TIME 10.8 SECS (9.5-12.5)
[2023-11-14 12:41] LABS: ALBUMIN 2.3 g/dL (3.4-4.8); CALCIUM 8.6 mg/dL (8.4-11.0); CREATININE 0.84 mg/dL (0.55-1.30); POTASSIUM 3.8 mmol/L (3.5-5.1); TOTAL BILIRUBIN 1.1 mg/dL (0.0-1.0); TOTAL PROTEIN, SERUM 6.2 g/dL (6.4-8.3)
[2023-11-14 12:45] VITALS: O2SAT 95
[2023-11-14 18:34] VITALS: BP_SYST 117; PULSE 117; RESP 39
== END 2023-11-14 15:45 | disposition home or self-care (01) ==
LOC: SRD 11:37 → SMU 11:37 → SRD 15:45
PROVIDERS: ATTEND Radiology Diagnostic Radiology
DX: J90 Pleural effusion, not elsewhere classified (principal); J84.89 Other specified interstitial pulmonary diseases; Z88.2 Allergy status to sulfonamides; Z88.8 Allergy status to other drugs, medicaments and biological substances; Z98.890 Other specified postprocedural states
CPT/HCPCS: 32555; 36415; 71045; 80053; 85025; 85610; 85730

== ENCOUNTER 2023-11-21 11:39 | Day surgery (SDC) | payer BC ==
[2023-11-21 12:45] LABS: HEMOGLOBIN 9.9 g/dL (12.0-16.0); MEAN CORPUSCULAR HEMOGLOBIN 35 pg (27-31); MEAN CORPUSCULAR HGB CONC 32 % (32-36); MEAN CORPUSCULAR VOLUME 109 fL (79.0-98.0); RED CELL DISTRIBUTION WIDTH 22.3 % (9.0-15.0)
[2023-11-21 13:04] LABS: ALBUMIN 2.4 g/dL (3.4-4.8); CALCIUM 8.9 mg/dL (8.4-11.0); CREATININE 0.81 mg/dL (0.55-1.30); POTASSIUM 4.4 mmol/L (3.5-5.1); PROTHROMBIN TIME 10.6 SECS (9.5-12.5); TOTAL BILIRUBIN 1.3 mg/dL (0.0-1.0); TOTAL PROTEIN, SERUM 6.4 g/dL (6.4-8.3)
[2023-11-21 14:10] LABS: RED BLOOD CELL COUNT(AUTO) 2.82 MIL/uL (4.2-6.2); WHITE BLOOD COUNT (AUTO) 9.2 K/uL (4.8-10.8)
[2023-11-21 14:11] LABS: HEMATOCRIT 30.7 % (36-48); PLATELET COUNT (AUTO) 118 K/uL (130-430)
[2023-11-21 14:12] VITALS: O2SAT 98
[2023-11-21 14:14] LABS: BASOPHILS % (MANUAL) 0 % (0-2); EOSINOPHILS % (MANUAL) 1 % (0-7); LYMPHOCYTES % (MANUAL) 21 % (20-46); MONOCYTES % (MANUAL) 12 % (0-11)
[2023-11-21 14:15] LABS: ANISOCYTOSIS 2+; POLYCHROMASIA 1+
[2023-11-21 14:19] LABS: PLATELET ESTIMATE ADEQUATE (ADEQUATE)
[2023-11-21 16:02] VITALS: BP_SYST 117; PULSE 98; RESP 20
== END 2023-11-21 15:15 | disposition home or self-care (01) ==
LOC: SRD 11:39 → SMU 11:40 → SRD 15:15
PROVIDERS: ATTEND Radiology Diagnostic Radiology
DX: J90 Pleural effusion, not elsewhere classified (principal); Z88.2 Allergy status to sulfonamides; Z88.8 Allergy status to other drugs, medicaments and biological substances; Z79.899 Other long term (current) drug therapy; Z99.3 Dependence on wheelchair
CPT/HCPCS: 32555; 71045; 85027; 80053; 85007; 85610; 85730; 36415; C1729

== ENCOUNTER 2023-11-28 10:57 | Day surgery (SDC) | payer BC ==
[~2023-11-28] VITALS: Ht 177.8 cm; Wt 51.3 kg
[2023-11-28 12:20] LABS: BASOPHILS % (AUTO) 0.9 % (0.0-2.0); EOSINOPHILS % (AUTO) 0.6 % (0.0-4.0); HEMATOCRIT 31.5 % (36-48); HEMOGLOBIN 10.1 g/dL (12.0-16.0); LYMPHOCYTES # (AUTO) 1.3 K/uL (1.0-5.5); LYMPHOCYTES % (AUTO) 27.4 % (20.5-51.5); MEAN CORPUSCULAR HEMOGLOBIN 34 pg (27-31); MEAN CORPUSCULAR HGB CONC 32 % (32-36); MEAN CORPUSCULAR VOLUME 107 fL (79.0-98.0); MONOCYTES # (AUTO) 0.4 K/uL (0.0-1.0); MONOCYTES % (AUTO) 8.2 % (1.7-9.3); NEUTROPHILS # (AUTO) 2.9 K/uL (1.8-7.7); NEUTROPHILS % (AUTO) 62.9 % (40.0-70.0); PLATELET COUNT (AUTO) 114 K/uL (130-430); RED BLOOD CELL COUNT(AUTO) 2.95 MIL/uL (4.2-6.2); WHITE BLOOD COUNT (AUTO) 4.6 K/uL (4.8-10.8)
[2023-11-28 12:43] LABS: ALBUMIN 2.6 g/dL (3.4-4.8); CALCIUM 9.2 mg/dL (8.4-11.0); CREATININE 0.89 mg/dL (0.55-1.30); POTASSIUM 4.4 mmol/L (3.5-5.1); TOTAL BILIRUBIN 1.3 mg/dL (0.0-1.0); TOTAL PROTEIN, SERUM 7.2 g/dL (6.4-8.3)
[2023-11-28 13:00] LABS: PROTHROMBIN TIME 10.5 SECS (9.5-12.5)
[2023-11-28] MEDS: LABETALOL HCL 20 MG/4 ML CARTRIDGE IVP ONE (16:29)
[2023-11-28 16:32] VITALS: O2SAT 92
[2023-11-28 17:42] VITALS: BP_SYST 101; PULSE 93; RESP 20
== END 2023-11-28 17:25 | disposition home or self-care (01) ==
LOC: SDS 10:57 → SMU 10:57 → SDS 17:25
PROVIDERS: ATTEND Radiology Diagnostic Radiology
DX: J90 Pleural effusion, not elsewhere classified (principal); C50.919 Malignant neoplasm of unspecified site of unspecified female breast; R06.02 Shortness of breath; J84.89 Other specified interstitial pulmonary diseases; Z88.2 Allergy status to sulfonamides; Z88.8 Allergy status to other drugs, medicaments and biological substances; Z79.899 Other long term (current) drug therapy
CPT/HCPCS: 32555; 71045; 80053; 85025; 85610; 85730; 36415; C1729; J2003

== ENCOUNTER 2023-11-28 19:34 | Emergency (ER) | payer BC ==
[~2023-11-28] VITALS: Ht 152.4 cm; Wt 52.2 kg
[2023-11-28 19:47] VITALS: BP_SYST 108; PULSE 104; RESP 16; TEMP 97.6; O2SAT 97
[2023-11-28 23:54] VITALS: BP_SYST 126; PULSE 100; RESP 20; TEMP 97.5; O2SAT 97
== END 2023-11-28 23:56 | disposition home or self-care (01) ==
LOC: SED 19:34
DX: R60.0 Localized edema (principal); R06.02 Shortness of breath; J90 Pleural effusion, not elsewhere classified; Z85.3 Personal history of malignant neoplasm of breast; Z88.2 Allergy status to sulfonamides; Z88.8 Allergy status to other drugs, medicaments and biological substances; Z79.899 Other long term (current) drug therapy; Z79.2 Long term (current) use of antibiotics
CPT/HCPCS: 71250-TC; 99284

== ENCOUNTER 2023-11-29 13:30 | Emergency (ER) | payer BC ==
[~2023-11-29] VITALS: Ht 152.4 cm; Wt 52.2 kg
[2023-11-29 13:39] VITALS: BP_SYST 125; PULSE 117; RESP 22; TEMP 98.5; O2SAT 97
[2023-11-29 14:29] LABS: MEAN CORPUSCULAR HGB CONC 33 % (32-36)
[2023-11-29 14:33] LABS: HEMATOCRIT 31.8 % (36-48); HEMOGLOBIN 10.4 g/dL (12.0-16.0); MEAN CORPUSCULAR HEMOGLOBIN 35 pg (27-31); MEAN CORPUSCULAR VOLUME 105 fL (79.0-98.0); PLATELET COUNT (AUTO) 124 K/uL (130-430); RED BLOOD CELL COUNT(AUTO) 3.02 MIL/uL (4.2-6.2); RED CELL DISTRIBUTION WIDTH 20.7 % (9.0-15.0); WHITE BLOOD COUNT (AUTO) 5.2 K/uL (4.8-10.8)
[2023-11-29 14:48] LABS: SERUM HCG (QUALITATIVE) NEGATIVE (NEGATIVE)
[2023-11-29 15:07] LABS: ANISOCYTOSIS 2+; BAND % (MANUAL) 0 % (0-6); BASOPHILS % (MANUAL) 0 % (0-2); EOSINOPHILS % (MANUAL) 0 % (0-7); LYMPHOCYTES % (MANUAL) 23 % (20-46); MONOCYTES % (MANUAL) 8 % (0-11); PLATELET ESTIMATE DECREASED (ADEQUATE)
[2023-11-29 15:16] LABS: ALANINE AMINOTRANSFERASE 27 U/L (12-78); ALBUMIN 2.5 g/dL (3.4-4.8); ANION GAP 12 (5-15); ASPARTATE AMINOTRANSFERASE 147 U/L (10-37); BILIRUBIN,DIRECT 0.8 mg/dL (0.0-0.3); CALCIUM 9.2 mg/dL (8.4-11.0); CARBON DIOXIDE 24 mmol/L (23-29); CHLORIDE 101 mmol/L (98-107); CREATININE 0.94 mg/dL (0.55-1.30); GFR AFRICAN AMERICAN 81 mL/min (>90); GFR NON AFRICAN-AMERICAN 67 mL/min (>90); GLUCOSE 106 mg/dL (74-106); POTASSIUM 5.3 mmol/L (3.5-5.1); SODIUM SERUM 137 mmol/L (136-145); TOTAL BILIRUBIN 1.2 mg/dL (0.0-1.0); TOTAL PROTEIN, SERUM 6.9 g/dL (6.4-8.3); UREA NITROGEN, BLOOD 20 mg/dL (8-21)
[2023-11-29 16:15] LABS: COVID19 ANTIGEN SOFIA FIA NEGATIVE (NEGATIVE); INFLUENZA TYPE A Negative (NEGATIVE); INFLUENZA TYPE B NEGATIVE (NEGATIVE)
[2023-11-29 17:26] VITALS: BP_SYST 148; PULSE 123; RESP 20; O2SAT 94
== END 2023-11-29 17:25 | disposition home or self-care (01) ==
LOC: SED 13:30
DX: J90 Pleural effusion, not elsewhere classified (principal); R06.02 Shortness of breath; Z20.822 Contact with and (suspected) exposure to COVID-19; Z85.3 Personal history of malignant neoplasm of breast; Z88.2 Allergy status to sulfonamides; Z91.018 Allergy to other foods; Z79.899 Other long term (current) drug therapy; Z79.2 Long term (current) use of antibiotics
CPT/HCPCS: 36415; 71045; 80048; 80076; 83605; 83880; 84484; 84703; 85007; 85027; 85379; 99284